=== PATIENT | female | born 1985 | race Caucasian/White ===

== ENCOUNTER 2022-05-14 11:47 | Outpatient (CLI) | payer MEDICAID, SELFPAY ==
[2022-05-14 13:29] LABS: Absolute Lymphocyte Count 3.04 X10^3/uL (0.83-4.51); Absolute Neutrophil Count 4.3 X10^3/uL (2.0-7.7); Basophil# 0.03 X10^3/uL; Basophil% 0.4 % (0-1); Eosinophil# 0.19 X10^3/uL; Eosinophils% 2.4 % (0-5); Hematocrit 44.9 % (37-47); Hemoglobin 15.1 g/dL (12.0-15.0); Lymphocyte # 3.04 X10^3/ul (0.83-4.51); Lymphocyte % 37.9 % (19-41); Mean Corp Hgb Conc 33.6 g/dL (32-36); Mean Corpuscular Hgb 31.1 pg (27.0-32.0); Mean Corpuscular Volume 92.6 fL (81-99); Mean Platelet Vol. 9.2 fl (6.2-12.0); Monocyte% 6.2 % (0-10); NRBC Flagged by Analyzer 0 % (0-5); Neutrophil # 4.25 X10^3/uL (2.7-7.7); Platelet Count 314 K/mm3 (150-450); RBC Distribution Width CV 13.2 % (11.6-14.6); RBC Distribution Width SD 44.8 fl (35.1-43.9); Red Blood Count 4.85 M/mm3 (4.2-5.4)
[2022-05-14 14:16] LABS: ALB/GLOB Ratio 1.1 RATIO (0.9-2.4); AST(SGOT) 11 U/L (15-37); Alanine Aminotransfer ALT/SGPT 19 U/L (13-56); Albumin, Serum 3.9 g/dL (3.2-5.0); Alkaline Phosphatase 50 U/L (45-117); Anion Gap 9 (5-15); BUN 15 mg/dL (7-18); BUN/Creat Ratio 22.1 RATIO (10-20); Calcium,Total 8.8 mg/dL (8.5-10.1); Chloride 107 mmol/L (98-107); Cholesterol 192 mg/dL (200); Creatinine, Serum 0.68 mg/dL (0.55-1.02); EST Glomerular Filtration Rate 104 mL/min (>60); Est Glom Filt Rate - Afr Amer 126 mL/min (>60); Globulin 3.4 g/dL (2.2-4.2); Glucose 77 mg/dL (74-106); High Density Lipoprotein 71 mg/dL; Protein, Total 7.3 g/dL (6.4-8.2); Sodium Level 138 mmol/L (136-145); Triglycerides 123 mg/dL; Very Low Density Lipoprotein 25 mg/dL (5-40)
== END 2022-05-14 23:59 | disposition home or self-care (01) ==
LOC: LAB 11:50
PROVIDERS: PCP Internal Medicine; Visit Provider Internal Medicine
DX: Z13.6 Encounter for screening for cardiovascular disorders (principal); F41.9 Anxiety disorder, unspecified; F32.A Depression, unspecified
CPT/HCPCS: 36415; 80053; 80061; 85025

== ENCOUNTER → 2022-07-02 | Outpatient (CLI) | payer MEDICAID, SELFPAY ==
[2022-07-02 13:09] LABS: Vitamin B12 354 pg/mL (211-911); Vitamin D,25 Hydroxy 34.7 ng/mL
[2022-07-02 13:15] LABS: Ferritin 122 ng/mL (8-252); Iron 81 ug/dL (50-170); Iron Binding Capacity,Total 441 ug/dL (250-450); PERCENT IRON SATURATION 18.4 % (15.0-55.0); Thyroid Stim Hormone (TSH) 0.73 uIU/mL (0.358-3.74)
== END | disposition home or self-care (01) ==
LOC: BIMLAB 10:36
PROVIDERS: PCP Internal Medicine; Referring Provider Internal Medicine; Visit Provider Internal Medicine
DX: L65.9 Nonscarring hair loss, unspecified (principal)
CPT/HCPCS: 36415; 82306; 82607; 82728; 83540; 83550; 84443

== ENCOUNTER → 2022-12-10 | Outpatient (CLI) | payer MEDICAID, SELFPAY ==
[2022-12-13 12:08] LABS: Chlamydia By Nucleic Acid AMP Negative (Negative); Gonococcus By Nucleic Acid AMP Negative (Negative)
[2022-12-15 19:07] LABS: HPV APTIMA, High Risk Negative (Negative)
== END | disposition home or self-care (01) ==
LOC: LABSPEC 15:48
PROVIDERS: PCP Internal Medicine; Referring Provider Registered Nurse; Visit Provider Registered Nurse
DX: Z00.00 Encounter for general adult medical examination without abnormal findings (principal); Z11.3 Encounter for screening for infections with a predominantly sexual mode of transmission
CPT/HCPCS: 87491; 87591; 87624; 88175; G0145

== ENCOUNTER → 2022-12-31 | Outpatient (CLI) | payer MEDICAID, SELFPAY ==
[2022-12-31 13:00] LABS: Absolute Lymphocyte Count 1.95 X10^3/uL (0.83-4.51); Absolute Neutrophil Count 3.1 X10^3/uL (2.0-7.7); Basophil# 0.02 X10^3/uL; Basophil% 0.4 % (0-1); Eosinophil# 0.07 X10^3/uL; Eosinophils% 1.3 % (0-5); Hemoglobin 14.3 g/dL (12.0-15.0); Lymphocyte # 1.95 X10^3/ul (0.83-4.51); Lymphocyte % 35.1 % (19-41); Mean Corp Hgb Conc 32.5 g/dL (32-36); Mean Corpuscular Hgb 30.2 pg (27.0-32.0); Mean Platelet Vol. 9.6 fl (6.2-12.0); Monocyte# 0.39 X10^3/uL; NRBC Flagged by Analyzer 0 % (0-5); Neutrophil % 55.7 % (47-70); Platelet Count 356 K/mm3 (150-450); RBC Distribution Width CV 13.4 % (11.6-14.6); RBC Distribution Width SD 46.2 fl (35.1-43.9); Red Blood Count 4.73 M/mm3 (4.2-5.4); White Blood Count 5.6 K/mm3 (4.4-11.0)
[2022-12-31 13:20] LABS: ALB/GLOB Ratio 1.1 RATIO (0.9-2.4); AST(SGOT) 12 U/L (15-37); Alanine Aminotransfer ALT/SGPT 15 U/L (13-56); Albumin, Serum 3.7 g/dL (3.2-5.0); Alkaline Phosphatase 45 U/L (45-117); Anion Gap 6 (5-15); BUN 15 mg/dL (7-18); Calcium,Total 9.3 mg/dL (8.5-10.1); Chloride 110 mmol/L (98-107); Cholesterol 192 mg/dL (200); Creatinine, Serum 0.79 mg/dL (0.55-1.02); EST Glomerular Filtration Rate 87 mL/min (>60); Est Glom Filt Rate - Afr Amer 105 mL/min (>60); Globulin 3.3 g/dL (2.2-4.2); Glucose 85 mg/dL (74-106); High Density Lipoprotein 75 mg/dL; Potassium 4.3 mmol/L (3.5-5.1); Sodium Level 137 mmol/L (136-145); Triglycerides 121 mg/dL; Very Low Density Lipoprotein 24 mg/dL (5-40)
[2022-12-31 13:37] LABS: Vitamin D,25 Hydroxy 42.4 ng/mL
== END | disposition home or self-care (01) ==
PROVIDERS: PCP Internal Medicine; Referring Provider Internal Medicine; Visit Provider Internal Medicine
DX: Z00.00 Encounter for general adult medical examination without abnormal findings (principal); F41.9 Anxiety disorder, unspecified; F32.A Depression, unspecified; E55.9 Vitamin D deficiency, unspecified
CPT/HCPCS: 36415; 80053; 80061; 82306; 85025

== ENCOUNTER → 2024-04-08 | Outpatient (CLI) | payer MEDICAID, SELFPAY ==
[2024-04-08 15:14] LABS: Absolute Neutrophil Count 4.2 X10^3/uL (2.0-7.7); Basophil# 0.03 X10^3/uL; Basophil% 0.4 % (0-1); Eosinophil# 0.11 X10^3/uL; Eosinophils% 1.5 % (0-5); Hematocrit 43.8 % (37-47); Hemoglobin 14.3 g/dL (12.0-15.0); Lymphocyte % 34.5 % (19-41); Mean Corp Hgb Conc 32.6 g/dL (32-36); Mean Corpuscular Hgb 29.3 pg (27.0-32.0); Mean Corpuscular Volume 89.8 fL (81-99); Mean Platelet Vol. 9.2 fl (6.2-12.0); Monocyte# 0.35 X10^3/uL; Monocyte% 4.8 % (0-10); NRBC Flagged by Analyzer 0 % (0-5); Neutrophil # 4.22 X10^3/uL (2.7-7.7); Neutrophil % 58.4 % (47-70); Platelet Count 341 K/mm3 (150-450); RBC Distribution Width CV 13.2 % (11.6-14.6); RBC Distribution Width SD 43.6 fl (35.1-43.9); Red Blood Count 4.88 M/mm3 (4.2-5.4); White Blood Count 7.2 K/mm3 (4.4-11.0)
[2024-04-08 15:43] LABS: Vitamin B12 280 pg/mL (211-911); Vitamin D,25 Hydroxy 32.2 ng/mL
[2024-04-08 15:54] LABS: Free T3 2.5 pg/mL (2.18-3.98); T4 Free Direct 0.96 ng/dL (0.76-1.46)
[2024-04-15 01:07] LABS: Thyroglobulin Antibody < 1.0 IU/mL (0.0-0.9); Thyroid Peroxidase AB < 9 IU/mL (0-34); VITAMIN B6 20.8 ug/L (3.4-65.2); Vitamin B1, Thiamine 109.1 nmol/L (66.5-200.0)
== END | disposition home or self-care (01) ==
PROVIDERS: Registered Nurse; PCP Internal Medicine; Referring Provider Nurse Practitioner Family; Visit Provider Nurse Practitioner Family
DX: R53.83 Other fatigue (principal); F32.A Depression, unspecified; F41.9 Anxiety disorder, unspecified; F90.9 Attention-deficit hyperactivity disorder, unspecified type
CPT/HCPCS: 36415; 82306; 82607; 82746; 84207; 84425; 84439; 84443; 84481; 85025; 86376; 86800

== ENCOUNTER → 2024-04-12 | Outpatient (CLI) | payer MEDICAID, SELFPAY ==
[2024-04-12 15:55] LABS: ALB/GLOB Ratio 1.1 RATIO (0.9-2.4); AST(SGOT) 11 U/L (15-37); Alanine Aminotransfer ALT/SGPT 17 U/L (13-56); Albumin, Serum 3.8 g/dL (3.2-5.0); Alkaline Phosphatase 44 U/L (45-117); Anion Gap 7 (5-15); BUN 16 mg/dL (7-18); Calcium,Total 9.4 mg/dL (8.5-10.1); Chloride 107 mmol/L (98-107); Cholesterol 213 mg/dL (200); EST Glomerular Filtration Rate 85 mL/min (>60); Est Glom Filt Rate - Afr Amer 103 mL/min (>60); Globulin 3.4 g/dL (2.2-4.2); Glucose 78 mg/dL (74-106); High Density Lipoprotein 87 mg/dL; Potassium 4.1 mmol/L (3.5-5.1); Protein, Total 7.2 g/dL (6.4-8.2); Sodium Level 137 mmol/L (136-145); Triglycerides 93 mg/dL; Very Low Density Lipoprotein 19 mg/dL (5-40)
== END | disposition home or self-care (01) ==
LOC: BIMLAB 11:35
PROVIDERS: PCP Internal Medicine; Visit Provider Internal Medicine
DX: J45.990 Exercise induced bronchospasm (principal); F41.9 Anxiety disorder, unspecified; F32.A Depression, unspecified; F90.9 Attention-deficit hyperactivity disorder, unspecified type
CPT/HCPCS: 36415; 80053; 80061

== ENCOUNTER → 2025-04-19 | Outpatient (CLI) | payer MEDICAID, SELFPAY ==
--- OUTSIDE RECORDS SUMMARY | 2025-04-19 09:52 | XMS RPT_ITS | CCD ---
Author Organization [facility] Care Team Providers Care Saute Chef Name Role Phone Sofia Rod CNP Unavailable [facility] Unavailable Gay Penn Unavailable Lester Nice LPN Unavailable Unavailable Unavailable Unavailable Dr. Alphonso Alvarez Referring Provider [phone] Dr. Carmela Turpin Primary Care Provider Dr. Carmela Turpin Attending Provider Dr. Carmela Turpin Referring Provider Dr. Carmela Turpin Primary Care Provider Dr. Carmela Turpin Referring Provider OLAYINKA Willingham Attending Provider Dr. Carmela Turpin Attending Provider SELF, SELF Referring Unavailable Patricia, Enedina Attending Unavailable [place], Carmela Primary Care Unavailable Alma Ramirez Attending Unavailable Papi, Carmela Referring Unavailable [place], Carmela Primary Care Unavailable [place], Carmela Primary Care Unavailable Patricia, Enedina Attending Unavailable Carmela Turpin Attending Unavailable [place], Carmela Referring Unavailable Papi, Carmela Primary Care Unavailable Patricia, Enedina Attending Unavailable [place], Carmela Primary Care Unavailable Patricia, Enedina Attending Unavailable Papi, Carmela Primary Care Unavailable Patricia, Enedina Attending Unavailable Papi, Carmela Primary Care Unavailable Papi, Carmela Primary Care Unavailable Patricia, Enedina Attending Unavailable Patricia, Enedina Attending Unavailable Carmela Turpin Primary Care Unavailable Allergies Allergy Classification Reported Allergen(s) Allergy Type Date of Onset Reaction(s) Facility (2 sources) Benadryl *ANTIHISTAMINES*; Translations: [Benadryl *ANTIHISTAMINES*] Allergy to drug (finding) [facility] Work Phone: Comment on above: restlessness insomni a Medications Current Medications Medication Drug Class(es) Dates Sig (Normalized) Sig (Original) [id number] 200 actuat albuterol 0.09 mg/actuat metered dose inhaler (5 sources) beta2-Adrenergic Agonist Start: 05-14-2022 take 1 puff(s) by inhalation every six hours Albuterol Sulfate (Ventolin Hfa) 90 mcg/actuation HFA aerosol inhaler Active 2 PUFF INHALATION EVERY 6 HOURS May 14, 2022 1:00am Start: 05-03-2021 take 1 puff(s) by in halation every four hours as needed Ventolin HFA 108 (90 Base) MCG/ACT Inhalation Aerosol Solution 1 (one) Puff q4hrs prn for 0 days Quantity: 1 {Each} Refills: 0 Ordered: 03-May-2021 Sofia Rod Mary Start : 03-May-2021 Active calcium carbonate 1250 mg chewable tablet (3 sources) Start: 05-14-2022 take 1 tablet by mouth once daily Calcium Carbonate (Calcium 500) 500 mg calcium (1,250 mg) tablet,chewable Active 500 MG PO DAILY May 14, 2022 1:00am cholecalciferol 0.05 mg oral capsule (3 sources) Vitamin D Start: 05-14-2022 take 50 ug by mouth once daily Cholecalciferol (Vitamin D3) Active 50 MCG PO DAILY May 14, 2022 1:00am docosahexaenoic acid 144 mg / eicosapentaenoic acid 216 mg / vitamin e 2 unt oral capsule (3 sources) Start: 05-14-2022 take 1 capsule by mouth once daily Vanderbilt-3 Fatty Acids-Fish Oil (Fish Oil) 360-1,200 mg capsule Active 1 CAP PO DAILY May 14, 2022 1:00am Levonorgestrel-Ethiny l Estrad (11 sources) Progestin, Estrogen, Progestin-contain ing Intrauterine Device Start: 12-10-2022 take 1 tablet by mouth once daily Levonorgestrel-Ethin yl Estrad (Aubra Eq) 0.1-20 mg-mcg tablet Active 1 TABLET PO DAILY December 10, 2022 12:01pm Start: 07-02-2022 End: 12-10-2022 take 1 tablet by mouth once daily Levonorgestrel-Ethinyl Estrad (Aubra Eq) 0.1-20 mg-mcg tablet Discontinued 1 TABLET PO DAILY July 02, 2022 11:19am December 10, 2022 12:01pm Start: 07-02-2022 take 1 tablet by brandon th once daily Levonorgestrel-Ethinyl Estrad (Aubra Eq) 0.1-20 mg-mcg tablet Active 1 TABLET PO DAILY July 02, 2022 10:19am Start: 05-14-2022 End: 07-02-2022 take 1 tablet by mouth once daily Levonorgestrel-Ethinyl Estrad (Aubra Eq) 0.1-20 mg-mcg tablet Discontinued 1 TABLET PO DAILY May 14, 2022 12:27pm July 02, 2022 11:21am Start: 05-14-2022 End: 07-02-2022 take 1 tablet by mouth once daily Levonorgestrel-Ethinyl Estrad (Aubra Eq) 0.1-20 mg-mcg tablet Discontinued 1 TABLET PO DAILY May 14, 2022 11:27am July 02, 2022 10:21am Start: 05-14-2022 take 1 tablet by brandon th once daily Levonorgestrel-Ethinyl Estrad (Aubra Eq) 0.1-20 mg-mcg tablet Active 1 TABLET PO DAILY May 14, 2022 11:27am Start: 05-14-2022 End: 05-14-2022 take 1 tablet by mouth once daily Levonorgestrel-Ethinyl Estrad (Aubra Eq) 0.1-20 mg-mcg tablet Discontinued 1 TABLET PO DAILY May 14, 2022 1:00am May 14, 2022 12:29pm Start: 05-14-2022 End: 05-14-2022 take 1 tablet by mouth once daily Levonorgestrel-Ethinyl Estrad (Aubra Eq) 0.1-20 mg-mcg tablet Discontinued 1 TABLET PO DAILY May 14, 2022 12:00am May 14, 2022 11:29am Start: 05-03-2021 take 1 tablet by brandon th once daily Aubra EQ 0.1-20 MG-MCG Oral Tablet 1 (one) Tablet daily for 0 days Quantity: 90 {Tablet} Refills: 3 Ordered: 03-May-2021 Marcel , Sofia Rod , Sofia Start : 03-May-2021 Active Start: 05-03-2021 take 1 tablet by brandon th once daily Aubra EQ 0.1-20 MG-MCG Oral Tablet 1 (one) Tablet daily for 0 days Quantity: 90 {Tablet} Refills: 3 Ordered: 03-May-2021 Marcel MOISE, Jodi Marcel MOISE, Sofia Cardoso Start : 03-May-2021 Active Lactobacillus Combo No.11 (Probiotic) 15 billion cell capsule, sprinkle (3 sources) Start: 05-14-2022 take 1 capsule by mouth once daily Lactobacillus Combo No.11 (Probiotic) 15 billion cell capsule, sprinkle Active 1 CAP PO DAILY May 14, 2022 1:00am do not crush/chew/cut; swallow whole OR may open and sprinkle in cold drink/food Start: 05-14-2022 take 1 capsule by mo uth once daily Lactobacillus Combo No.11 (Probiotic) 15 billion cell capsule, sprinkle Active 1 CAP PO DAILY May 14, 2022 12:00am do not crush/chew/cut; swallow whole OR may open and sprinkle in cold drink/food loratadine 10 mg oral tablet (4 sources) Start: 05-14-2022 take 1 tablet by mouth once daily Loratadine (Claritin) 10 mg tablet Active 10 MG PO DAILY May 14, 2022 1:00am Claritin Active magnesium oxide 500 mg oral capsule (3 sources) Start: 05-14-2022 take 500 mg by mouth once daily Magnesium Oxide Active 500 MG PO DAILY May 14, 2022 1:00am metroNIDAZOLE 0.01 mg/mg topical gel (5 sources) Nitroimidazole Antimicrobial Start: 05-14-2022 Metronidazole Active 1 APPLIC TOPICAL DAILY May 14, 2022 1:00am Start: 05-03-2021 metroNIDAZOLE 1 % External Gel 1 (one) Application daily for 0 days Quantity: 1 {Applicator} Refills: 3 Ordered: 03-May-2021 Sofia Rod Mary Start : 03-May-2021 Active Comments: 1 bottle Comment on above: 1 bottle Nf-Vt-Fvwy-Fa-Ca Carb-Vit K (3 sources) Start: 05-14-2022 take 1 tablet by mouth once daily Gd-Fz-Yggl-Fa-Ca Carb-Vit K Active 1 TABLET PO DAILY May 14, 2022 1:00am Start: 05-14-2022 take 1 tablet by brandon th once daily Kv-Xz-Xdbr-Fa-Ca Carb-Vit K Active 1 TABLET PO DAILY May 14, 2022 12:00am sertraline 100 mg oral tablet (12 sources) Serotonin Reuptake Inhibitor Start: 12-31-2022 take 100 mg by mouth once daily Sertraline Active 100 MG PO DAILY December 31, 2022 10:40am Start: 05-14-2022 End: 12-31-2022 take 75 mg by mouth once daily Sertraline Discontinued 75 MG PO DAILY October 10, 2022 8:29am December 31, 2022 10:51am Start: 05-14-2022 End: 05-14-2022 take 50 mg by mouth once daily Sertraline Discontinued 50 MG PO DAILY May 14, 2022 1:00am May 14, 2022 12:29pm Start: 05-03-2021 take 1 tablet by brandon th once daily Zoloft 50 MG Oral Tablet 1 (one) Tablet daily for 0 days Quantity: 90 {Tablet} Refills: 1 Ordered: 03-May-2021 Sofia Rod Mary Start : 03-May-2021 Active Comments: Generic please Comment on above: Generic please spironolactone 50 mg oral tablet (4 sources) Aldosterone Antagonist Start: 01-01-20 take 100 mg by mouth once daily Spironolactone Active 100 MG PO DAILY December 31, 2022 10:26am Start: 05-14-2022 End: 12-31-2022 take 50 mg by mouth once daily Spironolactone Discontinued 50 MG PO DAILY May 14, 2022 1:00am December 31, 2022 10:26am sulfacetamide sodium 100 mg/ml topical cream (3 sources) Sulfonamide Antibacterial Start: 05-14-2022 Sulfacetamide Sodium Active 1 APPLIC TOPICAL TWICE A DAY May 14, 2022 1:00am traZODone hydrochloride 100 mg oral tablet (5 sources) Serotonin Reuptake Inhibitor Start: 05-14-2022 take 100 mg by mouth at bedtime Trazodone Active 100 MG PO AT BEDTIME May 14, 2022 1:00am Start: 05-03-2021 traZODone HCl 100 MG Oral Tablet 1 (one) Tablet PRN for 0 days Quantity: 30 {Tablet} Refills: 0 Ordered: 03-May-2021 Sofia Rod Mary Start : 03-May-2021 Active ubidecarenone 100 mg oral capsule (3 sources) Start: 05-14-2022 Coenzyme Q10 A ctive 100 MG PO DAILY May 14, 2022 1:00am Vitamin B Complex (B Complex-Vitamin B12) tablet (3 sources) Start: 05-14-2022 take 1 tablet by mouth once daily Vitamin B Complex (B Complex-Vitamin B12) tablet Active 1 TABLET PO DAILY May 14, 2022 1:00am Start: 05-14-2022 take 1 tablet by brandon once daily Vitamin B Complex (B Complex-Vitamin B12) tablet Active 1 TABLET PO DAILY May 14, 2022 12:00am Completed/Discontinued Medications Medication Drug Class(es) Dates Sig (Normalized) Sig (Original) ACV (1 source) ACV Active apple cider vinegar 500 mg oral tablet (3 sources) Start: 05-14-2022 End: 12-10-2022 Apple Cider Vinegar Discontinued MG PO May 14, 2022 1:00am December 10, 2022 11:16am biotin 2.5 mg oral capsule (3 sources) Start: 05-14-2022 End: 12-10-2022 take 2500 ug by mouth once daily Biotin Discontinued 2500 MCG PO DAILY May 14, 2022 1:00am December 10, 2022 11:16am Calcium (1 source) Phosphate Binder, Calcium Calcium Active D3 5000U (1 source) D3 5000U Active Fish Oils (1 source) Fish Oil Active Magnesium (1 source) Magnesium Active MVI (1 source) MVI Active Tumeric (1 source) Tumeric Active vitamin b12 2.5 mg oral lozenge (2 sources) Vitamin B12 Start: 05-17-2021 take 1 tablet under the tongue every week Cyanocobalamin 2500 MCG Sublingual Tablet Sublingual 1 (one) Tablet thre times a week for 0 days Quantity: 60 {Tablet} Refills: 0 Ordered: 17-May-2021 Sofia Rdo Mary Start : 17-May-2021 Active Vitamin B12 complex (1 source) Vitamin B12 comp preeti Active Problems Active Problems Problem Classification Problem Date Documented Date Episodic/Chronic Administrative/social admission (2 sources) Persons encountering health services in other specified circumstances; Translations: [Other reasons for seeking consultation] Episodic Alcohol-related disorders (6 sources) History of alcohol abuse; Translations: [H/O ETOH abuse] 05-17-2021 Chronic Comment on above: not drinking Allergic reactions (3 sources) H/O: non-drug allergy; Translations: [Allergy status to unspecified drugs, medicaments and biological substances status] 05-14-2022 Episodic Anxiety disorders (5 sources) Anxiety disorder, unspecified; Translations: [Anxiety state, unspecified] Onset: 04-13-2025 Chronic Asthma (9 sources) Exercise-induced asthma; Translations: [Exercise-induced asthma] 05-17-2021 Chronic Attention-deficit, conduct, and disruptive behavior disorders (1 source) Attention-deficit hyperactivity disorder, unspecified type; Translations: [Attention-deficit hyperactivity disorder, unspecified type] Onset: 04-13-2025 Chronic Attention-deficit, conduct, and disruptive behavior disorders (1 source) Attention-deficit hyperactivity disorder, predominantly inattentive type; Translations: [Attention-deficit hyperactivity disorder, predominantly inattentive type] Onset: 02-22-2025 Chronic Blindness and vision defects (3 sources) Does use contact lenses; Translations: [Presence of spectacles and contact lenses] 05-14-2022 Episodic Contraceptive and procreative management (18 sources) Patient encounter status; Translations: [Encounter for control] 05-17-2021 Episodic Disorders of lipid metabolism (1 source) Mixed hyperlipidemia; Translations: [Mixed hyperlipidemia] Onset: 04-13-2025 Chronic Genitourinary symptoms and ill-defined conditions (3 sources) History of urinary tract infection; Translations: [Personal history of urinary (tract) infections] 05-14-2022 Episodic Immunizations and screening for infectious disease (2 sources) Encounter for immunization; Translations: [Need for prophylactic vaccination and inoculation against unspecified single disease] Episodic Mood disorders (4 sources) Depressive disorder; Translations: [Depression, controlled] 05-17-2021 Chronic Mood disorders (3 sources) Mood disorders; Translations: [Depression, unspecified] Onset: 04-13-2025 Nutritional deficiencies (6 sources) Vitamin D deficiency; Translations: [Vitamin D deficiency] Onset: 04-13-2025 05-17-2021 Chronic Nutritional deficiencies (7 sources) Cobalamin deficiency; Translations: [Vitamin B12 deficiency] Onset: 04-13-2025 05-17-2021 Episodic Other circulatory disease (3 sources) Raynaud's disease; Translations: [Raynaud's syndrome without gangrene] 05-14-2022 Chronic Other ear and sense organ disorders (2 sources) Other abnormal auditory perceptions, unspecified ear; Translations: [Hyperacusis] Episodic Other inflammatory condition of skin (11 sources) Rosacea; Translations: [Rosacea] 05-17-2021 Chronic Other inflammatory condition of skin (4 sources) Rosacea, unspecified; Translations: [Rosacea] Chronic Other nutritional; endocrine; and metabolic disorders (1 source) Personal history of other endocrine, nutritional and metabolic disease; Translations: [Personal history of other endocrine, nutritional and metabolic disease] Onset: 04-13-2025 Episodic Other screening for suspected conditions (not mental disorders or infectious disease) (7 sources) Screening status; Translations: [Screening for diabetes mellitus] 05-17-2021 Episodic Other skin disorders (1 source) Nonscarring hair loss, unspecified; Translations: [Alopecia, unspecified] Episodic Residual codes; unclassified (4 sources) Body mass index 20-24 - normal; Translations: [BMI 20.0-20.9, adult] 05-17-2021 Episodic Residual codes; unclassified (4 sources) Insomnia; Translations: [Insomnia] 05-17-2021 Episodic Residual codes; unclassified (4 sources) Non-smoker; Translations: [Nonsmoker] 05-17-2021 Episodic Residual codes; unclassified (3 sources) Past history of procedure; Translations: [Other specified postprocedural states] 05-14-2022 Episodic Residual codes; unclassified (3 sources) Difficulty sleeping ; Translations: [Sleep disorder, unspecified] 05-14-2022 Episodic Screening and history of mental health and substance abuse codes (9 sources) History of clinical finding in subject; Translations: [Personal history of other mental and behavioral disorders] 05-14-2022 Episodic Past or Other Problems Problem Classification Problem Date Documented Da te Episodic/Chronic Deficiency and other anemia (1 source) Deficiency and other anemia Diabetes mellitus without complication (1 source) Diabetes mellitus without complication Unclassified (2 sources) Deliveries (Parity); Translations: [Deliveries (Parity)] 05-17-2021 Comment on above: 0 Unclassified (2 sources) Pregnancies (); Translations: [Pregnancies ()] 05-17-2021 Comment on above: 0 Unclassified (4 sources) Unclassified (2 sources) BMI 20.0-20.9, adult Unclassified (2 sources) Nonsmoker Unclassified (1 source) H/O ETOH abuse Unclassified (1 source) Encounter for control Unclassified (1 source) Encounter for screening for lipid disorder Unclassified (1 source) Encounter for general adult medical examination with abnormal findings Unclassified (1 source) Screening for endocrine disorder Unclassified (3 sources) No history of procedure; Translations: [No history of previous surgery] 05-14-2022 Results Test Name Value Interpretation Reference Range Facility Internal Medicine Office Vis banner 04-11-2025 Internal Medicine Office Visit [facility] Internal Medicine [facility] [facility] [place] [address] OFFICE VISIT Date of Service: 04/13/25 MR#: [id number] Acct: [id number] Name: BIANCA CARBONE Rep #: [id number] : 1985 Provider: Dr. Carmela phan MD Age/Sex: 39/F Location: [facility] [place] Status: Signed Intake Vital Signs 04/12/24 11:06 02/22/25 08:31 04/13/25 08:44 Height 5 ft 9 in 5 ft 9 in 5 ft 9 in Weight: 130 lb BMI 19.2 BP 116/78 Blood Pressure Location Lt brachial Position Sitting Respiration 16 Pulse 76 Pulse Source Monitor Temp 97.2 F L Temp Source Temporal Pulse Oximetry (%) 99 Oxygen Delivery Method room air Intake Visit Reasons: yearly Chief Complaint: follow up Water Restoration Technician Required: No Is patient in pain?: No Allergies No Known Allergies Allergy (Verified 04/13/25 08:28) Medications ???Medication ???Instructions ???Recorded ???Confirmed ???Type loratadine 10 mg tablet (Claritin) 10 mg PO DAILY 05/14/22 04/13/25 History magnesium oxide 500 mg capsule 500 mg PO DAILY 05/14/22 04/13/25 History spironolactone 100 mg tablet 100 mg PO DAILY 12/11/23 04/13/25 History sulfacetamide sodium (acne) 10 % topical 04/12/24 04/13/25 History lotion (suspension) hydroxyzine HCl 25 mg tablet 25 mg PO BID PRN anxiety #60 tabs 05/11/24 04/13/25 Rx niacinamide 500 mg tablet 500 mg PO BID 05/11/24 04/13/25 Hi story vitamin R28-meuzpnd B1 1,000 ml IM 05/11/24 04/13/25 History mcg-100 mg/mL injection solution vitamin D3 125 mcg (5,000 cap PO 05/11/24 04/13/25 History unit)-vitamin K2 100 mcg capsule oxymetazoline 1 % topical cream 1 applic topical QDAY 09/28/24 History levonorgestrel-ethinyl estradiol 1 tab PO DAILY #84 tabs 11/18/24 1 Rx 0.1 mg-20 mcg tablet (Aubra EQ) buspirone 7.5 mg tablet 7.5 mg PO BID #180 tabs 02/22/25 1 Rx dextroamphetamine-amphet amine 5 mg 5 mg PO QDAY 30 days #30 tabs 04/13/25 Rx tablet dextroamphetamine-amphet amine ER 15 mg PO QAM 30 days #30 caps 01/2804/13/25 Rx 15 mg 24hr capsule,extend release (Adderall XR) evening primrose oil 1,300 mg mg PO 02/22/25 04/13/25 History capsule sertraline 100 mg tablet 100 mg PO DAILY #90 tabs 02/22/25 04/13/25 Rx trazodone 100 mg tablet 100 mg PO QHS PRN insomnia #90 tab s 02/22/25 04/13/25 Rx albuterol sulfate 90 mcg/actuation 2 puff inhalation Q6H PRN 04/13/25 Rx aerosol inhaler (Ventolin HFA) shortness of breath or wheezing #8.5 grams liothyronine 5 mcg tablet 5 mcg PO BID 04/13/25 04/13/25 His tory Nurse's Note: pt needs albuterol refilled. Pt got flu shot last thursday w/ covid booster. Pt is fasting for labs. [facility] Medical History (Updated 04/13/25 @ 08:[address] Carmela Turpin MD) Enlarged lymph node in neck Hx of major depression History of anxiety Wears contact lenses Hx of emotional problems Hx: UTI (urinary tract infection) Hx of seasonal allergies History of alcohol abuse Surgical History (Updated 04/13/25 @ 08:[address] Carmela Turpin MD) History of removal of skin mole S/P thyroid biopsy Family History Father Anxiety Depression Mother Thyroid disorder Thyroid cancer Primary lateral sclerosis secondary to lyme disease Grandfather Alcohol abuse Maternal Grandmother Alcohol abuse Maternal Grandfather Heart disease Uncle Heart disease genetic defect Aunt Breast cancer x2 Grandmother No problems noted. Social History (Updated 04/13/25 @ 08:[address] 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 1. Little interest or pleasure in doing things: not at all 2. Feeling down, depressed, or hopeless: not at all 3. Trouble falling or staying asleep, or sleeping too much: several days (if trazadone missed) 4. Feeling tired or having little energy: several days 5. Poor appetite or overeating: not at all 6. Feeling bad about yourself - or that you are a failure or have let yourself and your family down: not at all 7. Trouble concentrating on things, such as reading the (more content not included)... Normal [facility] DNA analysis discrete US PREVENTIVE MEDICINE ce variation panel [facility] (Bld/Tiss)on 03-29-2025 Disclaimer See Notes [facility] Comment on above: Result Comment: This test was developed and validated by [facility]. This test has not been cleared or approved by the [place] Food and Drug Administration (FDA). The [facility] laboratory is accredited by the [employer] (CAP) and certified under the Clinical Laboratory Improvement Amendments (CLIA #: [id number]) to perform high-complexity clinical tests. This test is used for clinical purposes. It should not be regarded as investigational use only or for research use only. Performed By: #### 5 5208-3 #### [facility] (DEFAULT) [address] [address] Genes Tested See Notes [facility] Comment on above: Result Comment: APOB , BRCA1, BRCA2, EPCAM, LDLR, LDLRAP1, PCSK9, PMS2, MLH1, MSH2, MSH6 Performed By: #### 5 5208-3 #### [facility] (DEFAULT) [address] [address] GENETIC ANALYSIS REPORT [facility] Comment on above: Result Comment: No p athogenic or likely pathogenic variants were detected in the genes analyzed by this test.Genetic test results should be interpreted in the context of an individual's personal medical and family history. Alteration to medical management is NOT recommended based solely on this result. Clinical correlation is advised.Additional Considerations- This is a screening test; individuals may still carry pathogenic or likely pathogenic variant(s) in the tested genes that are not detected by this test.- For individuals at risk for these or other related conditions based on factors including personal or family history, diagnostic testing is recommended.- The absence of pathogenic or likely pathogenic variant(s) in the analyzed genes, while reassuring, does not eliminate the possibility of a hereditary condition; there are other variants and genes associated with heart disease and hereditary cancer that are not included in this test. Performed By: #### 5 5208-3 #### [facility] (DEFAULT) [address] [place] [address] Genetic Diseases Assessed Normal [facility] Comment on above: Result Comment: This is a screening test and does not detect all pathogenic or likely pathogenic variant(s) in the tested genes; diagnostic testing is recommended for individuals with a personal or family history of heart disease or hereditary cancer. [facility] Tier One Population Screen is a screening test that analyzes 11 genes related to hereditary breast and ovarian cancer (HBOC) syndrome, Mejia syndrome, and familial hypercholesterolemia. This test only reports clinically significant pathogenic and likely pathogenic variants but does not report variants of uncertain significance (VUS). In addition, analysis of the PMS2 gene excludes exons 11-15, which overlap with a known pseudogene (PMS2CL). Performed By: #### 5 5208-3 #### [facility] (DEFAULT) [address] [place] [address] Interpretation Methods and Limitations See Notes Normal [facility] Comment on above: Result Comment: Extr acted DNA is enriched for targeted regions and then sequenced using the [facility] Exome+ (R) assay on an Illumina DNA sequencing system. Data is then aligned to a modified version of GRCh38 and all genes are analyzed using the ABRAM transcript and ABRAM Plus Clinical transcript, when available. Small variant calling is completed using a customized version of [employer]'s [employer] software, augmented by a proprietary small variant caller for difficult variants. Copy number variants (CNVs) are then called using a proprietary bioinformatics pipeline based on depth analysis with a comparison to similarly sequenced samples. Analysis of the PMS2 gene is limited to exons 1-10. The interpretation and reporting of variants in APOB, PCSK9, and LDLR is specific to familial hypercholesterolemia; variants associated with hypobetalipoproteinemia are not included. Interpretation is based upon guidelines published by the [employer] (ACMG), the Association for Molecular Pathology (AMP) or their modification by ClinGen Variant Curation Expert Panels when available and/or review of previous clinical assertions available in the ClinVar database. Interpretation is limited to the transcripts indicated on the report and +/- 10 bp into intronic regions, except as noted below. [place] variant classifications include pathogenic, likely pathogenic, variant of uncertain significance (VUS), likely benign, and benign. Only variants classified as pathogenic and likely pathogenic are included in the report. All reported variants are confirmed through secondary manual inspection of DNA sequence data or orthogonal testing. Risk estimations and management guidelines included in this report are based on analysis of primary literature and recommendations of applicable professional societies, and should be regarded as approximations.Based on validation studies,this assay delivers > 99% sensitivity and specificity for single nucleotide variants and insertions and deletions (indels) up to 20 bp. Larger indels and complex variants are also reported but sensitivity may be reduced. Based on validation studies, this assay delivers > 99% sensitivity to multi-exon CNVs and > 90% sensitivity to single-exon CNVs. This test may not detect variants in challenging regions (such as short tandem repeats, homopolymer runs, and segment duplications), sub-exonic CNVs, chromosomal aneuploidy, or variants in the presence of mosaicism. Phasing will be attempted and reported, when possible. Structural rearrangements such as inversions, translocations, and gene conversions are not tested in this assay unless explicitly indicated. Additionally, deep intronic, promoter, and enhancer regions may not be covered. It is important to note that this is a screening test and cannot detect all disease-causing variants. A negative result does not guarantee the absence of a rare, undetectable variant in the genes analyzed; consider using a diagnostic test if there is significant personal and/or family history of one of the conditions analyzed by this test. Any potential incidental findings outside of these genes and conditions will not be identified, nor reported. The results of a genetic test may be influenced by various factors, including bone marrow transplantation, blood transfusions, or in rare cases, hematolymphoid neoplasms.Gene Specific Notes:APOB: analysis is limited to c.16116P>A and c.21825C>T; BRCA1: sequencing analysis extends to CDS +/-20 bp; BRCA2: sequencing analysis extends to CDS +/-20 bp. EPCAM: analysis is limited to CNVof exons 8-9; LDLR: analysis includes CNV ofthe promoter; MLH1: analysis includes CNV of the promoter; PMS2: analysis is limited to exons 1-10. Hever Mckeon, PhD, FACMGG [email or web address] Performed By: #### 5 5208-3 #### [facility] (DEFAULT) [address] [address] Overall Interpretation Normal [facility] Comment on above: Result Comment: Nega tive No pathogenic (disease-causing) genetic variants related to mejia syndrome, hereditary breast and ovarian cancer (BRCA1 and BRCA2 only), or familial hypercholesteremia were detected in this screening test.? ? Based on your personal and family medical history, additional risk assessment or genetic testing may be appropriate for you.?? ? Please follow up with your healthcare provider if you have additional questions or concerns and continue regular health maintenance and screening.? Performed By: #### 5 5208-3 #### [facility] (DEFAULT) [address] [place] [address] Sequencing Location See Notes Normal [facility] Comment on above: Result Comment: Sequ encing done at [facility] [address] [place] [address], [address], [place] [address] (CLIA# [id number]) Performed By: #### 5 5208-3 #### [facility] (DEFAULT) [address] [place] [address] MR/BMS.BPon 02-22-2025 MR/BMS.BP [facility] [address] [place] [address], [address] [place] [address] OFFICE VISIT Date of Service: 02/22/25 MR#: [id number] Acct: [id number] Name: BIANCA CARBONE Rep #: [id number] : 1985 Provider: NOHEMY velarde Age/Sex: 39/F Location: [facility] [place] Status: Signed Intake Vital Signs 11/25/24 08:32 12/13/24 10:43 02/22/25 08:31 Height 5 ft 9 in 5 ft 9 in 5 ft 9 in Weight: 137 lb 2 oz 135 lb BMI 20.2 19.9 BP 108/76 117/82 H 108/73 Blood Pressure Location Lt brachial Lt brachial Position Sitting Sitting Respiration 14 16 Pulse 61 65 Pulse Source Monitor Monitor BP Intake Visit Reasons: 3 M FU Accompanied by: Self Allergies No Known Allergies Allergy (Verified 02/22/25 08:35) Medications ???Medication ???Instructions ???Recorded ???Confirmed ???Type cholecalciferol (vitamin D3) 50 50 mcg PO DAILY 05/14/22 02/22/25 History mcg (2,000 unit) capsule loratadine 10 mg tablet (Claritin) 10 mg PO DAILY 05/14/22 02/22/25 History magnesium oxide 500 mg capsule 500 mg PO DAILY 05/14/22 02/22/25 History albuterol sulfate 90 mcg/actuation 2 puff inhalation Q6H PRN 02/22/25 Rx aerosol inhaler (Ventolin HFA) shortness of breath or wheezing #8.5 grams spironolactone 100 mg tablet 100 mg PO DAILY 12/11/23 02/22/25 History sulfacetamide sodium (acne) 10 % topical 04/12/24 02/22/25 History lotion (suspension) hydroxyzine HCl 25 mg tablet 25 mg PO BID PRN anxiety #60 tabs 05/11/24 02/22/25 Rx niacinamide 500 mg tablet 500 mg PO BID 05/11/24 02/22/25 Hi story vitamin Z81-funoqos B1 1,000 ml IM 05/11/24 02/22/25 History mcg-100 mg/mL injection solution vitamin D3 125 mcg (5,000 cap PO 05/11/24 02/22/25 History unit)-vitamin K2 100 mcg capsule oxymetazoline 1 % topical cream 1 applic topical QDAY 09/28/24 History levonorgestrel-ethinyl estradiol 1 tab PO DAILY #84 tabs 11/18/24 0 02/22/25 Rx 0.1 mg-20 mcg tablet (Aubra EQ) buspirone 7.5 mg tablet 7.5 mg PO BID #180 tabs 02/22/25 0 02/22/25 Rx dextroamphetamine-amphet amine 5 mg 5 mg PO QDAY 30 days #30 tabs 02/22/25 Rx tablet dextroamphetamine-amphet amine 5 mg 5 mg PO QDAY 30 days #30 tabs 08 /27/25 08/27/25 Rx tablet dextroamphetamine-amphet amine ER 15 mg PO QAM 30 days #30 caps 01/2802/22/25 Rx 15 mg 24hr capsule,extend release (Adderall XR) dextroamphetamine-amphet amine ER 15 mg PO QAM 30 days #30 caps 01/2802/22/25 Rx 15 mg 24hr capsule,extend release (Adderall XR) evening primrose oil 1,300 mg mg PO 02/22/25 02/22/25 History capsule sertraline 100 mg tablet 100 mg PO DAILY #90 tabs 02/22/25 02/22/25 Rx trazodone 100 mg tablet 100 mg PO QHS PRN insomnia #90 tab s 02/22/25 02/22/25 Rx PFSH Medical History Hx of major depression History of anxiety Wears contact lenses Hx of emotional problems Hx: UTI (urinary tract infection) Hx of seasonal allergies History of alcohol abuse Surgical History History of removal of skin mole S/P thyroid biopsy Family History Father Anxiety Depression Mother Cancer thyroid Thyroid disorder Grandfather Alcohol abuse Grandmother Alcohol abuse Grandfather Heart disease Uncle Heart disease genetic defect Aunt Cancer breast cancer. both maternal aunts >40 Social History adopted: No household members: none housing: house current occupational status: employed current occupation: [employer] pets and animals: No sexually active: Yes Smoking Status: Never smoker Electronic Cigarette Use: not used alcohol intake: former year quit: 2019 substance use type: does not use diet: gluten free caffeine: Yes (3) Type: tea what type of physical activity do you participate in: walking, yoga and weight training frequency: 5-6 times per week seatbelt use: always do you feel safe at home: Yes HPI History of Present Illness History provided by: patient HPI: Valerie Carbone is a 39 year old female patient presenting today for a follow up evaluation. Reports she has been doing well since last appointment. Reports she has been working more, went to [place] with her sisters, and her brother got . Does feel medication has been overall effective for her. Denies side effects. Denies feelings of depression. Denies SI/HI. Does feel that more recently the morning dose is not lasting as long as before and the booster is not quite as effective as before. Is unsure if this is related to environment or hormones. Has been a worsening issue over the last 3-4 weeks. Denies recent feelings of anxiety. Appetite has been good. Sleep h (more content not included)... 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 Office Visit Reporton 12-13-2024 Mechanic Assistant Office Visit Report [facility] [address], [address] [place] [address] OFFICE VISIT Date of Service: 12/13/24 MR#: [id number] Acct: [id number] Name: BIANCA CARBONE Rep #: [id number] : 1985 Provider: NOHEMY Thakkar Age/Sex: 39/F Location: [facility] [place] Status: Signed Intake Vital Signs 10/25/24 07:52 11/25/24 08:32 12/13/24 10:43 Height 5 ft 9 in 5 ft 9 in 5 ft 9 in Weight: 137 lb 2 oz BMI 20.2 BP 116/77 108/76 117/82 H Blood Pressure Location Lt brachial Lt brachial Position Sitting Sitting Respiration 16 14 Pulse 58 L 61 Pulse Source Monitor Monitor 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 Technician Required: No Is patient in pain?: No Allergies No Known Allergies Allergy (Verified 12/13/24 10:45) Medications ???Medication ???Instructions ???Recorded ???Confirmed ???Type cholecalciferol (vitamin D3) 50 50 mcg PO DAILY 05/14/22 12/13/24 History mcg (2,000 unit) capsule loratadine 10 mg tablet (Claritin) 10 mg PO DAILY 05/14/22 12/13/24 History magnesium oxide 500 mg capsule 500 mg PO DAILY 05/14/22 12/13/24 History albuterol sulfate 90 mcg/actuation 2 puff inhalation Q6H PRN 12/13/24 Rx aerosol inhaler (Ventolin HFA) shortness of breath or wheezing #8.5 grams spironolactone 100 mg tablet 100 mg PO DAILY 12/11/23 12/13/24 History sulfacetamide sodium (acne) 10 % topical 04/12/24 12/13/24 History lotion (suspension) adenosine triphosphate 25 mg 25 mg PO TID 05/11/24 12/13/24 His tory tablet,delayed release (ATP) hydroxyzine HCl 25 mg tablet 25 mg PO BID PRN anxiety #60 tabs 05/11/24 12/13/24 Rx iron 1.5 mg-folate 8.73 1 cap PO QDAY 05/11/24 12/13/24 Hi story ip-pzm-zwn-EFF-KTHQ-rdh- multivit capsule,IR, (EnLyte) niacinamide 500 mg tablet 500 mg PO BID 05/11/24 12/13/24 Hi story vit A 225 mcg-D3 2.5 mcg-E 16.75 cap PO 05/11/24 12/13/24 History ts-bbzxid-etsc-selenom-h erb capsule (MedCaps T3) vitamin K01-wfqdwul B1 1,000 ml IM 05/11/24 12/13/24 History mcg-100 mg/mL injection solution vitamin D3 125 mcg (5,000 cap PO 05/11/24 12/13/24 History unit)-vitamin K2 100 mcg capsule trazodone 100 mg tablet 100 mg PO QHS PRN insomnia #90 tab s 06/30/24 12/13/24 Rx buspirone 7.5 mg tablet 7.5 mg PO BID #180 tabs 09/08/24 0 12/13/24 Rx oxymetazoline 1 % topical cream 1 applic topical QDAY 09/28/24 History sertraline 100 mg tablet 100 mg PO DAILY #90 tabs 10/03/24 12/13/24 Rx levonorgestrel-ethinyl estradiol 1 tab PO DAILY #84 tabs 11/18/24 0 12/13/24 Rx 0.1 mg-20 mcg tablet (Aubra EQ) dextroamphetamine-amphet amine 5 mg 5 mg PO QDAY 30 days #30 tabs 12/13/24 Rx tablet dextroamphetamine-amphet amine ER 15 mg PO QAM 30 days #30 caps 05/12/13/24 Rx 15 mg 24hr capsule,extend release (Adderall XR) Is last menstrual period known: No Post menopausal: No Patient : No : No Control Method: ocp- aubra [facility] Medical History Hx of major depression History of anxiety Wears contact lenses Hx of emotional problems Hx: UTI (urinary tract infection) Hx of seasonal allergies History of alcohol abuse Surgical History History of removal of skin mole S/P thyroid biopsy Family History Father Anxiety Depression Mother Cancer thyroid Thyroid disorder Grandfather Alcohol abuse Grandmother Alcohol abuse Grandfather Heart disease Uncle Heart disease genetic defect Aunt Cancer breast cancer. both maternal aunts >40 Social History adopted: No household members: none housing: house current occupational status: employed current occupation: [employer] pets and animals: No sexually active: Yes Smoking Status: Never smoker Electronic Cigarette Use: not used alcohol intake: former year quit: 2019 substance use type: does not use diet: gluten free caffeine: Yes (3) Type: tea what type of physical activity do you participate in: walking, yoga and weight training frequency: 5-6 times per week seatbelt use: always do you feel safe at home: Yes History 0 Elective abortions Hx Para Spontaneous abortions Hx # Term Pregnancies Ectopic pregnancies Hx # Pregnancies Multiple births # of living children HPI 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 She reports she has been having night sweats; has been going on for approx 2 months. Takes her OCP continously. Unsure when last menses was. Otherwise doing well with no other issues or concerns. Last PAP: 2022; [place] (more content not included)... Normal [facility] MR/BMSBraulio 11-25-2024 MR/BMS. [facility] [address], [address] [place] [id number] OFFICE VISIT Date of Service: 11/25/24 MR#: [id number] Acct: [id number] Name: BIANCA CARBONE Rep #: [id number] : 1985 Provider: NOHEMY velarde Age/Sex: 39/F Location: [facility] [place] Status: Signed Intake Vital Signs 10/25/24 07:52 11/25/24 08:32 Height 5 ft 9 in 5 ft 9 in BP 116/77 108/76 Blood Pressure Location Lt brachial Lt brachial Position Sitting Sitting Respiration 16 14 Pulse 58 L 61 Pulse Source Monitor Monitor BP Intake Visit Reasons: 1 M FU Water Restoration Technician Required: No Accompanied by: Self Is patient in pain?: No Allergies No Known Allergies Allergy (Verified 11/25/24 08:31) Medications ???Medication ???Instructions ???Recorded ???Confirmed ???Type cholecalciferol (vitamin D3) 50 50 mcg PO DAILY 05/14/22 11/25/24 History mcg (2,000 unit) capsule loratadine 10 mg tablet (Claritin) 10 mg PO DAILY 05/14/22 11/25/24 History magnesium oxide 500 mg capsule 500 mg PO DAILY 05/14/22 11/25/24 History albuterol sulfate 90 mcg/actuation 2 puff inhalation Q6H PRN 11/25/24 Rx aerosol inhaler (Ventolin HFA) shortness of breath or wheezing #8.5 grams spironolactone 100 mg tablet 100 mg PO DAILY 12/11/23 11/25/24 History sulfacetamide sodium (acne) 10 % topical 04/12/24 11/25/24 History lotion (suspension) adenosine triphosphate 25 mg 25 mg PO TID 05/11/24 11/25/24 His tory tablet,delayed release (ATP) hydroxyzine HCl 25 mg tablet 25 mg PO BID PRN anxiety #60 tabs 05/11/24 11/25/24 Rx iron 1.5 mg-folate 8.73 1 cap PO QDAY 05/11/24 11/25/24 Hi story mb-fvb-nqn-ACM-FWQK-ffl- multivit capsule,DR RADHA (EnLyte) niacinamide 500 mg tablet 500 mg PO BID 05/11/24 11/25/24 Hi story vit A 225 mcg-D3 2.5 mcg-E 16.75 cap PO 05/11/24 11/25/24 History nc-hnmzpv-tfjb-selenom-h erb capsule (MedCaps T3) vitamin O02-rtxnplw B1 1,000 ml IM 05/11/24 11/25/24 History mcg-100 mg/mL injection solution vitamin D3 125 mcg (5,000 cap PO 05/11/24 11/25/24 History unit)-vitamin K2 100 mcg capsule trazodone 100 mg tablet 100 mg PO QHS PRN insomnia #90 tab s 06/30/24 11/25/24 Rx buspirone 7.5 mg tablet 7.5 mg PO BID #180 tabs 09/08/24 0 11/25/24 Rx oxymetazoline 1 % topical cream 1 applic topical QDAY 09/28/24 History sertraline 100 mg tablet 100 mg PO DAILY #90 tabs 10/03/24 11/25/24 Rx levonorgestrel-ethinyl estradiol 1 tab PO DAILY #84 tabs 11/18/24 0 11/25/24 Rx 0.1 mg-20 mcg tablet (Aubra EQ) dextroamphetamine-amphet amine 5 mg 1 tab PO QDAY 30 days #30 tabs 0 11/25/24 11/25/24 Rx tablet dextroamphetamine-amphet amine 5 mg 5 mg PO QDAY 30 days #30 tabs 11/25/24 Rx tablet dextroamphetamine-amphet amine 5 mg 5 mg PO QDAY 30 days #30 tabs 11/25/24 Rx tablet dextroamphetamine-amphet amine ER 1 cap PO QDAY 30 days #30 caps 11/25/24 Rx 15 mg 24hr capsule,extend release dextroamphetamine-amphet amine ER 15 mg PO QAM 30 days #30 caps 10/2911/25/24 Rx 15 mg 24hr capsule,extend release (Adderall XR) dextroamphetamine-amphet amine ER 15 mg PO QAM 30 days #30 caps 10/2911/25/24 Rx 15 mg 24hr capsule,extend release (Adderall XR) PFSH Medical History Hx of major depression History of anxiety Wears contact lenses Hx of emotional problems Hx: UTI (urinary tract infection) Hx of seasonal allergies History of alcohol abuse Surgical History History of removal of skin mole S/P thyroid biopsy Family History Father Anxiety Depression Mother Cancer thyroid Thyroid disorder Grandfather Alcohol abuse Grandmother Alcohol abuse Grandfather Heart disease Uncle Heart disease genetic defect Aunt Cancer breast cancer. both maternal aunts >40 Social History adopted: No household members: none housing: house current occupational status: employed current occupation: [employer] pets and animals: No sexually active: Yes Smoking Status: Never smoker Electronic Cigarette Use: not used alcohol intake: former year quit: 2019 substance use type: does not use diet: gluten free caffeine: Yes (3) Type: tea what type of physical activity do you participate in: walking, yoga and weight training frequency: 5-6 times per week seatbelt use: always do you feel safe at home: Yes HPI History of Present Illness History provided by: patient HPI: Valerie Carbone is a 39 year old female patient presenting today for a follow up evaluation. Recently returned from being in [place] with her family and going to see Keyla (more content not included)... Normal [facility] MR/BMS.BPon 10-25-2024 MR/[place] [address] OFFICE VISIT Date of Service: 10/25/24 MR#: [id number] Acct: [id number] Name: BIANCA CARBONE Rep #: [id number] : 1985 Provider: NOHEMY velarde Age/Sex: 39/F Location: [facility] [place] Status: Signed Intake Vital Signs 09/28/24 12:53 10/25/24 07:52 Height 5 ft 9 in 5 ft 9 in BP 119/84 H 116/77 Blood Pressure Location Lt brachial Lt brachial Position Sitting Sitting Respiration 16 16 Pulse 88 58 L Pulse Source Monitor Monitor BP Intake Visit Reasons: 4wfu Accompanied by: Self Allergies No Known Allergies Allergy (Verified 10/25/24 07:57) Medications ???Medication ???Instructions ???Recorded ???Confirmed ???Type cholecalciferol (vitamin D3) 50 50 mcg PO DAILY 05/14/22 10/25/24 History mcg (2,000 unit) capsule loratadine 10 mg tablet (Claritin) 10 mg PO DAILY 05/14/22 10/25/24 History magnesium oxide 500 mg capsule 500 mg PO DAILY 05/14/22 10/25/24 History albuterol sulfate 90 mcg/actuation 2 puff inhalation Q6H PRN 10/25/24 Rx aerosol inhaler (Ventolin HFA) shortness of breath or wheezing #8.5 grams levonorgestrel-ethinyl estradiol 1 tab PO DAILY #84 tabs 12/11/23 0 10/25/24 Rx 0.1 mg-20 mcg tablet (Aubra EQ) spironolactone 100 mg tablet 100 mg PO DAILY 12/11/23 10/25/24 History sulfacetamide sodium (acne) 10 % topical 04/12/24 10/25/24 History lotion (suspension) adenosine triphosphate 25 mg 25 mg PO TID 05/11/24 10/25/24 His tory tablet,delayed release (ATP) hydroxyzine HCl 25 mg tablet 25 mg PO BID PRN anxiety #60 tabs 05/11/24 10/25/24 Rx iron 1.5 mg-folate 8.73 1 cap PO QDAY 05/11/24 10/25/24 Hi story ef-fyv-nsb-IJK-KZFU-wrk- multivit capsule,IRDR (EnLyte) niacinamide 500 mg tablet 500 mg PO BID 05/11/24 10/25/24 Hi story vit A 225 mcg-D3 2.5 mcg-E 16.75 cap PO 05/11/24 10/25/24 History vl-aydihd-plpd-selenom-h erb capsule (MedCaps T3) vitamin O61-gryntrg B1 1,000 ml IM 05/11/24 10/25/24 History mcg-100 mg/mL injection solution vitamin D3 125 mcg (5,000 cap PO 05/11/24 10/25/24 History unit)-vitamin K2 100 mcg capsule trazodone 100 mg tablet 100 mg PO QHS PRN insomnia #90 tab s 06/30/24 10/25/24 Rx buspirone 7.5 mg tablet 7.5 mg PO BID #180 tabs 09/08/24 0 10/25/24 Rx oxymetazoline 1 % topical cream 1 applic topical QDAY 09/28/24 History sertraline 100 mg tablet 100 mg PO DAILY #90 tabs 10/03/24 10/25/24 Rx dextroamphetamine-amphet amine 5 mg 5 mg PO QDAY 30 days #30 tabs 10/25/24 Rx tablet dextroamphetamine-amphet amine ER 15 mg PO QAM 30 days #30 caps 09/2810/25/24 Rx 15 mg 24hr capsule,extend release PFSH Medical History Hx of major depression History of anxiety Wears contact lenses Hx of emotional problems Hx: UTI (urinary tract infection) Hx of seasonal allergies History of alcohol abuse Surgical History History of removal of skin mole S/P thyroid biopsy Family History Father Anxiety Depression Mother Cancer thyroid Thyroid disorder Grandfather Alcohol abuse Grandmother Alcohol abuse Grandfather Heart disease Uncle Heart disease genetic defect Aunt Cancer breast cancer. both maternal aunts >40 Social History (Updated 04/12/24 @ 11:[address] Carmela Turpin MD) adopted: No household members: none housing: house current occupational status: employed current occupation: [employer] pets and animals: No sexually active: Yes Smoking Status: Never smoker Electronic Cigarette Use: not used alcohol intake: former year quit: 2019 substance use type: does not use diet: gluten free caffeine: Yes (3) Type: tea what type of physical activity do you participate in: walking, yoga and weight training frequency: 5-6 times per week seatbelt use: always do you feel safe at home: Yes HPI History of Present Illness History provided by: patient HPI: Valerie Carbone is a 39 year old female patient presenting today for a follow up evaluation. Reports she has seen improvements with increasing dose of medication. Reports noticing improvements with being able to get started on tasks and finding the motivation to do things. Has also been able to get tasks completed. Does feel she has done better with prioritizing things and getting tasks completed before the last minute. Reports she has been more calm and more able to take things as they come. Denies any recent depressed feelings. Denies SI/HI. Denies panic attacks. Does report anxiety has improved but is still present at times. Does report still noticing a drop off at about 2 with the curr (more content not included)... Normal [facility] MR/BMS.BPon 09-28-2024 MR/BMS.BP [facility] [address], [address] [place] [address] OFFICE VISIT Date of Service: 09/28/24 MR#: [id number] Acct: [id number] Name: BIANCA CARBONE Rep #: [id number] : 1985 Provider: NOHEMY velarde Age/Sex: 39/F Location: [facility] [place] Status: Signed Intake Vital Signs 08/17/24 08:59 09/28/24 12:53 Height 5 ft 9 in 5 ft 9 in Weight: 132 lb BMI 19.5 BP 121/83 H 119/84 H Blood Pressure Location Lt brachial Lt brachial Position Sitting Sitting Respiration 16 16 Pulse 85 88 Pulse Source Monitor Monitor BP Intake Visit Reasons: 6wfu Accompanied by: Self Allergies No Known Allergies Allergy (Verified 09/28/24 12:55) Medications ???Medication ???Instructions ???Recorded ???Confirmed ???Type cholecalciferol (vitamin D3) 50 50 mcg PO DAILY 05/14/22 09/28/24 History mcg (2,000 unit) capsule loratadine 10 mg tablet (Claritin) 10 mg PO DAILY 05/14/22 09/28/24 History magnesium oxide 500 mg capsule 500 mg PO DAILY 05/14/22 09/28/24 History albuterol sulfate 90 mcg/actuation 2 puff inhalation Q6H PRN 09/28/24 Rx aerosol inhaler (Ventolin HFA) shortness of breath or wheezing #8.5 grams levonorgestrel-ethinyl estradiol 1 tab PO DAILY #84 tabs 12/11/23 0 09/28/24 Rx 0.1 mg-20 mcg tablet (Aubra EQ) spironolactone 100 mg tablet 100 mg PO DAILY 12/11/23 09/28/24 History sulfacetamide sodium (acne) 10 % topical 04/12/24 09/28/24 History lotion (suspension) adenosine triphosphate 25 mg 25 mg PO TID 05/11/24 09/28/24 His tory tablet,delayed release (ATP) hydroxyzine HCl 25 mg tablet 25 mg PO BID PRN anxiety #60 tabs 05/11/24 09/28/24 Rx iron 1.5 mg-folate 8.73 1 cap PO QDAY 05/11/24 09/28/24 Hi story sj-esy-iyw-IVP-NOAF-reb- multivit capsule,IR, (EnLyte) niacinamide 500 mg tablet 500 mg PO BID 05/11/24 09/28/24 Hi story vit A 225 mcg-D3 2.5 mcg-E 16.75 cap PO 05/11/24 09/28/24 History ie-ftcbjf-ylvi-selenom-h erb capsule (MedCaps T3) vitamin E05-znianrd B1 1,000 ml IM 05/11/24 09/28/24 History mcg-100 mg/mL injection solution vitamin D3 125 mcg (5,000 cap PO 05/11/24 09/28/24 History unit)-vitamin K2 100 mcg capsule trazodone 100 mg tablet 100 mg PO QHS PRN insomnia #90 tab s 06/30/24 09/28/24 Rx sertraline 100 mg tablet 100 mg PO DAILY #90 tabs 08/17/24 09/28/24 Rx buspirone 7.5 mg tablet 7.5 mg PO BID #180 tabs 09/08/24 0 09/28/24 Rx dextroamphetamine-amphet amine ER 15 mg PO QAM 30 days #30 caps 08/2309/28/24 Rx 15 mg 24hr capsule,extend release oxymetazoline 1 % topical cream 1 applic topical QDAY 09/28/2408/23 History PFSH Medical History Hx of major depression History of anxiety Wears contact lenses Hx of emotional problems Hx: UTI (urinary tract infection) Hx of seasonal allergies History of alcohol abuse Surgical History History of removal of skin mole S/P thyroid biopsy Family History Father Anxiety Depression Mother Cancer thyroid Thyroid disorder Grandfather Alcohol abuse Grandmother Alcohol abuse Grandfather Heart disease Uncle Heart disease genetic defect Aunt Cancer breast cancer. both maternal aunts >40 Social History (Updated 04/12/24 @ 11:[address] Carmela Turpin MD) adopted: No household members: none housing: house current occupational status: employed current occupation: [employer] pets and animals: No sexually active: Yes Smoking Status: Never smoker Electronic Cigarette Use: not used alcohol intake: former year quit: 2019 substance use type: does not use diet: gluten free caffeine: Yes (3) Type: tea what type of physical activity do you participate in: walking, yoga and weight training frequency: 5-6 times per week seatbelt use: always do you feel safe at home: Yes HPI History of Present Illness History provided by: patient HPI: Valerie Carbone is a 39 year old female patient presenting today for a follow up evaluation. Reports she has been doing well since her last appointment. Does feel medication has been effective but feels in the afternoon by 2-3 PM it feels like benefit is decreasing. Does take medication 0800 and feels it is beneficial some days but not every day. Does struggle with being spacey and feeling like she is struggling to start something. When medication is effective is noticing improvements in focus, task completion, and feels less overwhelmed. Does feel she has been more patient. Does feel she has been able to prioritize her to do list and do more important things first. Does feel she has not been interrupting others as often as she would before. Did not notice s (more content not included)... Normal [facility] MR/BMS.BPon 08-17-2024 MR/BMS.BP [address], [address] [place] [address] OFFICE VISIT Date of Service: 08/17/24 MR#: [id number] Acct: [id number] Name: BIANCA CARBONE Rep #: [id number] : 1985 Provider: NOHEMY velarde Age/Sex: 39/F Location: [facility] [place] Status: Signed Intake Vital Signs 06/30/24 13:57 08/17/24 08:59 Height 5 ft 9 in 5 ft 9 in Weight: 132 lb BMI 19.5 BP 138/89 H 121/83 H Blood Pressure Location Lt brachial Lt brachial Position Sitting Sitting Respiration 16 16 Pulse 78 85 Pulse Source Monitor Monitor BP Intake Visit Reasons: 6-8fu Allergies No Known Allergies Allergy (Verified 06/30/24 14:00) Medications ???Medication ???Instructions ???Recorded ???Confirmed ???Type cholecalciferol (vitamin D3) 50 50 mcg PO DAILY 05/14/22 08/17/24 History mcg (2,000 unit) capsule loratadine 10 mg tablet (Claritin) 10 mg PO DAILY 05/14/22 08/17/24 History magnesium oxide 500 mg capsule 500 mg PO DAILY 05/14/22 08/17/24 History albuterol sulfate 90 mcg/actuation 2 puff inhalation Q6H PRN 08/17/24 Rx aerosol inhaler (Ventolin HFA) shortness of breath or wheezing #8.5 grams levonorgestrel-ethinyl estradiol 1 tab PO DAILY #84 tabs 12/11/23 0 08/17/24 Rx 0.1 mg-20 mcg tablet (Aubra EQ) spironolactone 100 mg tablet 100 mg PO DAILY 12/11/23 08/17/24 History buspirone 7.5 mg tablet 7.5 mg PO BID #180 tabs 02/17/24 0 08/17/24 Rx sulfacetamide sodium (acne) 10 % topical 04/12/24 08/17/24 History lotion (suspension) adenosine triphosphate 25 mg 25 mg PO TID 05/11/24 08/17/24 His tory tablet,delayed release (ATP) hydroxyzine HCl 25 mg tablet 25 mg PO BID PRN anxiety #60 tabs 05/11/24 08/17/24 Rx iron 1.5 mg-folate 8.73 1 cap PO QDAY 05/11/24 08/17/24 Hi story nc-eml-zpb-RXF-YLXT-jwi- multivit capsule,IR, (EnLyte) niacinamide 500 mg tablet 500 mg PO BID 05/11/24 08/17/24 Hi story vit A 225 mcg-D3 2.5 mcg-E 16.75 cap PO 05/11/24 08/17/24 History da-zfcmuf-efpf-selenom-h erb capsule (MedCaps T3) vitamin T65-nnupyow B1 1,000 ml IM 05/11/24 08/17/24 History mcg-100 mg/mL injection solution vitamin D3 125 mcg (5,000 cap PO 05/11/24 08/17/24 History unit)-vitamin K2 100 mcg capsule trazodone 100 mg tablet 100 mg PO QHS PRN insomnia #90 tab s 06/30/24 08/17/24 Rx atomoxetine 40 mg capsule 40 mg PO QDAY #14 caps 08/17/24 Rx dextroamphetamine-amphet amine ER 10 mg PO QAM 30 days #30 caps 07/3008/17/24 Rx 10 mg 24hr capsule,extend release sertraline 100 mg tablet 100 mg PO DAILY #90 tabs 08/17/24 08/17/24 Rx PFSH Medical History Hx of major depression History of anxiety Wears contact lenses Hx of emotional problems Hx: UTI (urinary tract infection) Hx of seasonal allergies History of alcohol abuse Surgical History History of removal of skin mole S/P thyroid biopsy Family History Father Anxiety Depression Mother Cancer thyroid Thyroid disorder Grandfather Alcohol abuse Grandmother Alcohol abuse Grandfather Heart disease Uncle Heart disease genetic defect Aunt Cancer breast cancer. both maternal aunts >40 Social History (Updated 04/12/24 @ 11:[address] Carmela Turpin MD) adopted: No household members: none housing: house current occupational status: employed current occupation: [employer] pets and animals: No sexually active: Yes Smoking Status: Never smoker Electronic Cigarette Use: not used alcohol intake: former year quit: 2019 substance use type: does not use diet: gluten free caffeine: Yes (3) Type: tea what type of physical activity do you participate in: walking, yoga and weight training frequency: 5-6 times per week seatbelt use: always do you feel safe at home: Yes HPI History of Present Illness History provided by: patient HPI: Valerie Carbone is a 39 year old female patient presenting today for a follow up evaluation. Does feel that atomoxetine has not been beneficial for her any longer. Does feel like she is not taking any medication currently although she is compliant. Denies any recent increase in depression. Does feel the weather affects this for her some. Denies SI/HI. Denies having any heightened anxiety. Denies panic attacks. Sleep has been good and has been on average getting about 7 hours per night. Appetite has been good with no changes. Has lost about 6 pounds since April. Admits to struggling with focus, concentration, and inattention. Admits to difficulties with starting and completing tasks. Does feel before she would look at her to do list and immediately complete it. Does feel business has slo (more content not included)... Normal [facility] MR/BMS.BPon 06-30-2024 MR/BMS.[address], [address] [place] [address] OFFICE VISIT Date of Service: 06/30/24 MR#: [id number] Acct: [id number] Name: BIANCA CARBONE Rep #: [id number] : 1985 Provider: NOHEMY velarde Age/Sex: 39/F Location: [facility] [place] Status: Signed Intake Vital Signs 05/11/24 12:59 06/30/24 13:57 Height 5 ft 9 in 5 ft 9 in Weight: 139 lb BMI 20.5 BP 135/82 H 138/89 H Blood Pressure Location Rt brachial Lt brachial Position Sitting Sitting Respiration 18 16 Pulse 80 78 Pulse Source Monitor Monitor BP Intake Visit Reasons: 6 wk FU Accompanied by: Self Allergies No Known Allergies Allergy (Verified 06/30/24 14:00) Medications ???Medication ???Instructions ???Recorded ???Confirmed ???Type cholecalciferol (vitamin D3) 50 50 mcg PO DAILY 05/14/22 06/30/24 History mcg (2,000 unit) capsule loratadine 10 mg tablet (Claritin) 10 mg PO DAILY 05/14/22 06/30/24 History magnesium oxide 500 mg capsule 500 mg PO DAILY 05/14/22 06/30/24 History albuterol sulfate 90 mcg/actuation 2 puff inhalation Q6H PRN 09/21/23 06/30/24 Rx aerosol inhaler (Ventolin HFA) shortness of breath or wheezing #8.5 grams levonorgestrel-ethinyl estradiol 1 tab PO DAILY #84 tabs 12/11/23 06/30/24 Rx 0.1 mg-20 mcg tablet (Aubra EQ) spironolactone 100 mg tablet 100 mg PO DAILY 12/11/23 06/30/24 History buspirone 7.5 mg tablet 7.5 mg PO BID #180 tabs 02/17/24 06/30/24 Rx sertraline 100 mg tablet 100 mg PO DAILY #90 tabs 04/05/24 06/30/24 Rx sulfacetamide sodium (acne) 10 % topical 04/12/24 06/30/24 History lotion (suspension) adenosine triphosphate 25 mg 25 mg PO TID 05/11/24 06/30/24 History tablet,delayed release (ATP) hydroxyzine HCl 25 mg tablet 25 mg PO BID PRN anxiety #60 tabs 05/11/24 06/30/24 Rx iron 1.5 mg-folate 8.73 1 cap PO QDAY 05/11/24 06/30/24 History hj-dyg-gtm-PRL-IYIT-abu- multivit capsule,DR RADHA (EnLyte) niacinamide 500 mg tablet 500 mg PO BID 05/11/24 06/30/24 History vit A 225 mcg-D3 2.5 mcg-E 16.75 cap PO 05/11/24 06/30/24 History if-hndjqx-stln-selenom-h erb capsule (MedCaps T3) vitamin Y20-uksmxoo B1 1,000 ml IM 05/11/24 06/30/24 History mcg-100 mg/mL injection solution vitamin D3 125 mcg (5,000 cap PO 05/11/24 06/30/24 History unit)-vitamin K2 100 mcg capsule atomoxetine 40 mg capsule 40 mg PO BID #60 caps 06/30/24 06/30/24 Rx trazodone 100 mg tablet 100 mg PO QHS PRN insomnia #90 tabs 06/30/24 06/30/24 Rx PFSH Medical History Hx of major depression History of anxiety Wears contact lenses Hx of emotional problems Hx: UTI (urinary tract infection) Hx of seasonal allergies History of alcohol abuse Surgical History History of removal of skin mole S/P thyroid biopsy Family History Father Anxiety Depression Mother Cancer thyroid Thyroid disorder Grandfather Alcohol abuse Grandmother Alcohol abuse Grandfather Heart disease Uncle Heart disease genetic defect Aunt Cancer breast cancer. both maternal aunts >40 Social History (Updated 04/12/24 @ 11:[address] Carmela Turpin MD) adopted: No household members: none housing: house current occupational status: employed current occupation: [employer] pets and animals: No sexually active: Yes Smoking Status: Never smoker Electronic Cigarette Use: not used alcohol intake: former year quit: 2019 substance use type: does not use diet: gluten free caffeine: Yes (3) Type: tea what type of physical activity do you participate in: walking, yoga and weight training frequency: 5-6 times per week seatbelt use: always do you feel safe at home: Yes HPI History of Present Illness History provided by: patient HPI: Valerie Carbone is a 39 year old female patient presenting today for a follow up evaluation. Does feel that BID dosing of atomoxetine has been more effective than once daily dosing. Over the last week has been struggling more with being able to focus and get tasks completed however is slowing down at work and coming off of a busy holiday season. Mood has been good. Denies any increase in depression and has not had bouts of depression at all recently. Denies SI/HI. Has not noticed any increase in anxiety or irritability. Denies panic attacks. Has not needed hydroxyzine since last appointment. Reports sleep to still be good. Has been taking 100mg of trazodone instead of 50mg due to difficulties with sleep. 7 hours of sleep on average. Had been struggling to stay asleep. Denies any changes in appetite with atomoxetine. Denies any changes in weight with medication. Previous similar episode: Yes Age of first onset of symptoms: 1 (more content not included)... Normal [facility] MR/BMS.BPon 05-11-2024 MR/BMS.BP [facility] [address], [address] [place] [address] OFFICE VISIT Date of Service: 05/11/24 MR#: [id number] Acct: [id number] Name: BIANCA CARBONE Rep #: [id number] : 1985 Provider: NOHEMY velarde Age/Sex: 38/F Location: [facility] [place] Status: Signed Intake Vital Signs 03/30/24 13:33 04/12/24 11:06 05/11/24 12:59 Height 5 ft 9 in 5 ft 9 in 5 ft 9 in Weight: 139 lb BMI 20.5 BP 135/82 H Blood Pressure Location Rt brachial Position Sitting Respiration 18 Pulse 80 Pulse Source Monitor BP Intake Visit Reasons: 6wfu Accompanied by: Self Allergies No Known Allergies Allergy (Verified 05/11/24 13:01) Medications ???Medication ???Instructions ???Recorded ???Confirmed ???Type cholecalciferol (vitamin D3) 50 50 mcg PO DAILY 05/14/22 04/12/24 History mcg (2,000 unit) capsule loratadine 10 mg tablet (Claritin) 10 mg PO DAILY 05/14/22 04/12/24 History magnesium oxide 500 mg capsule 500 mg PO DAILY 05/14/22 04/12/24 History albuterol sulfate 90 mcg/actuation 2 puff inhalation Q6H PRN 09/21/23 04/12/24 Rx aerosol inhaler (Ventolin HFA) shortness of breath or wheezing #8.5 grams levonorgestrel-ethinyl estradiol 1 tab PO DAILY #84 tabs 12/11/23 04/12/24 Rx 0.1 mg-20 mcg tablet (Aubra EQ) spironolactone 100 mg tablet 100 mg PO DAILY 12/11/23 04/12/24 History buspirone 7.5 mg tablet 7.5 mg PO BID #180 tabs 02/17/24 04/12/24 Rx trazodone 100 mg tablet 100 mg PO QHS PRN insomnia #90 tabs 02/17/24 04/12/24 Rx sertraline 100 mg tablet 100 mg PO DAILY #90 tabs 04/05/24 04/12/24 Rx sulfacetamide sodium (acne) 10 % topical 04/12/24 04/12/24 History lotion (suspension) adenosine triphosphate 25 mg 25 mg PO TID 05/11/24 05/11/24 History tablet,delayed release (ATP) atomoxetine 40 mg capsule 40 mg PO BID #60 caps 05/11/24 05/11/24 Rx hydroxyzine HCl 25 mg tablet 25 mg PO BID PRN anxiety #60 tabs 05/11/24 05/11/24 Rx iron 1.5 mg-folate 8.73 1 cap PO QDAY 05/11/24 05/11/24 History pt-uqg-lht-JMW-MBVT-dgp- multivit capsule,IR, (EnLyte) niacinamide 500 mg tablet 500 mg PO BID 05/11/24 05/11/24 History vit A 225 mcg-D3 2.5 mcg-E 16.75 cap PO 05/11/24 05/11/24 History ez-ifahki-monm-selenom-h erb capsule (MedCaps T3) vitamin C22-vrrcefl B1 1,000 ml IM 05/11/24 05/11/24 History mcg-100 mg/mL injection solution vitamin D3 125 mcg (5,000 cap PO 05/11/24 05/11/24 History unit)-vitamin K2 100 mcg capsule PFSH Medical History Hx of major depression History of anxiety Wears contact lenses Hx of emotional problems Hx: UTI (urinary tract infection) Hx of seasonal allergies History of alcohol abuse Surgical History History of removal of skin mole S/P thyroid biopsy Family History Father Anxiety Depression Mother Cancer thyroid Thyroid disorder Grandfather Alcohol abuse Grandmother Alcohol abuse Grandfather Heart disease Uncle Heart disease genetic defect Aunt Cancer breast cancer. both maternal aunts >40 Social History (Updated 04/12/24 @ 11:[address] Carmela Turpin MD) adopted: No household members: none housing: house current occupational status: employed current occupation: [employer] pets and animals: No sexually active: Yes Smoking Status: Never smoker Electronic Cigarette Use: not used alcohol intake: former year quit: 2019 substance use type: does not use diet: gluten free caffeine: Yes (3) Type: tea what type of physical activity do you participate in: walking, yoga and weight training frequency: 5-6 times per week seatbelt use: always do you feel safe at home: Yes HPI History of Present Illness History provided by: patient HPI: Valerie Carbone is a 38 year old female patient presenting today for a follow up evaluation. 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 Does feel she has seen improvements in symptoms with increasing atomoxetine but does not feel it has been effective enough. Admits to taking her medication in the morning and it has been beneficial with focusing which has reduced her stress in many ways. Does feel she has been more stressed with the recent results of the election. Reports she is not getting overwhelmed to the point of not being able to do anything. Does feel more stressed and like it is decreasing energy. Is sleeping well with the use of trazodone. 6 hours per night. Admits to feelings well rested an having good energy throughout the day. Appetite has been fine. Denies any changes in weight. Has not been feeling depressed recently and feels it is well managed with her current medication regimen. Denies SI/HI. [place] (more content not included)... Normal [facility] Absolute lymphocyte countOrd ered By: Carmela Turpin on 12-31-2022 Lymphocytes Auto (Unsp spec) [#/Vol] 1.95 10*3/uL 0.83-4.51 [facility] Basophil percentageOrdered B y: Carmela Turpin on 12-31-2022 Basophils/100 WBC (Bld) 0.4 % 0-1 [facility] Bilirubin [Mass/Vol] 0.60 mg/dL 0.20-1.00 [facility] Comment on above: For patients on eltr ombopag therapy, use of Dimension [place] TBIL is not recommended. Chloride [Moles/Vol] 110 mmol/L 98-107 [facility] Cholesterol [Mass/Vol] 192 mg/dL <[address] [facility] Comment on above: <200 mg/dL Desirable 200-240 mg/dL Borderline >240 mg/dL High Risk Eosinophils/100 WBC (Bld) 1.3 % 0-5 [facility] Glucose [Mass/Vol] 85 mg/dL 74-106 [facility] Neutrophils (Bld) [#/Vol] 3.1 10*3/uL 2.0-7.7 [facility] Neutrophils/100 WBC (Bld) 55.7 % 47-70 [facility] Potassium [Moles/Vol] 4.3 mmol/L 3.5-5.1 [facility] Protein [Mass/Vol] 7.0 g/dL 6.4-8.2 [facility] Sodium [Moles/Vol] 137 mmol/L 136-145 [facility] Triglyceride [Mass/Vol] 121 mg/dL <199 [facility] Comment on above: The drugs N-Acetylcy steine and Metamizole may falsely depress this assay.Serum Triglycerides Reference Interval Normal <150 mg/dL Borderline high 150 - 199 mg/dL High 200 - 499 mg/dL Very High > or = 500 mg/dL WBC (Bld) [#/Vol] 5.6 10*3/uL 4.4-11.0 [facility] Blood erythrocytes count (nu mber/volume)Ordered By: Carmela Turpin on 12-31-2022 RBC (Bld) [#/Vol] 4.73 10*6/uL 4.2-5.4 [facility] Blood hemoglobin measurement (mass/volume)Ordered By: Carmela Turpin on 12-31-2022 Hemoglobin (Bld) [Mass/Vol] 14.3 g/dL 12.0-15.0 [facility] Blood lymphocytes/100 leukoc ytesOrdered By: Carmela Turpin on 12-31-2022 Lymphocytes/100 WBC (Bld) 35.1 % 19-41 [facility] Blood monocytes/100 leukocyt esOrdered By: Carmela Turpin on 12-31-2022 Monocytes/100 WBC (Bld) 7.0 % 0-10 [facility] Blood platelet mean volumeOr dered By: Carmela Turpin on 12-31-2022 Platelet mean volume (Bld) [Entitic vol] 9.6 fL 6.2-12.0 [facility] Determination of erythrocyte mean corpuscular volume (MCV)Ordered By: Carmela Turpin on 12-31-2022 MCV (RBC) [Entitic vol] 93.0 fL 81-99 [facility] Hematocrit Auto (Bld) [Volum e fraction]Ordered By: Carmela Turpin on 12-31-2022 Hematocrit (Bld) [Volume fraction] 44.0 % 37-47 [facility] Laboratory - Chemistry and C hemistry - challengeOrdered By: Carmlea Turpin on 12-31-2022 ALP [Catalytic activity/Vol] 45 U/L 45-117 [facility] ALT [Catalytic activity/Vol] 15 U/L 13-56 [facility] CO2 [Moles/Vol] 21.0 mmol/L 21.0-32.0 [facility] Globulin (S) [Mass/Vol] 3.3 g/dL 2.2-4.2 [facility] Urea nitrogen/Creatinine [Mass ratio] 19.0 mg/mg 10-20 [facility] Laboratory - Hematology and Cell countsOrdered By: Carmelamasha Turpin on 12-31-2022 Erythrocyte distribution width (RBC) [Entitic vol] 46.2 fL 35.1-43.9 [facility] Erythrocyte distribution width (RBC) [Ratio] 13.4 % 11.6-14.6 [facility] Immature granulocytes/100 WBC (Bld) 0.500 % 0.0-0.9 [facility] Comment on above: IG% - Immature Granu locytes (promyelocytes, myelocytes and metamyelocytes) > 1% indicates that a LEFT SHIFT is Present. MCH (RBC) [Entitic mass] 30.2 pg 27.0-32.0 [facility] Nucleated RBC/100 WBC (Bld) [Ratio] 0 % 0-5 [facility] MCHC Auto (RBC) [Mass/Vol]Or dered By: Carmela Turpin on 12-31-2022 MCHC (RBC) [Mass/Vol] 32.5 g/dL 32-36 [facility] No Panel InformationOrdered By: Carmela Turpin on 12-31-2022 Miscellaneous Test See comment [facility] Comment on above: TEST RESULTS LIMITSN icotine Metabolite(s),Serum Negative Cutoff=25 TESTING PERFORMED AT [facility]. ORIGINAL REPORT ON FILE IN LAB CONTAINS ADDITIONAL TEST SITE INFORMATION. Estimated GFR (MDRD) Amer 105 mL/min >60 [facility] Comment on above: GFR Calc Estimated GFR (MDRD) Non-Af Amer 87 mL/min >60 [facility] Comment on above: Non- GFR Calc Vitamin D 25-Hydroxy 42.4 ng/mL [facility] Comment on above: Vitamin D 25(OH) Sta tus Range Deficiency <20 ng/mL (50nmol/L) Insufficiency 20 - 30 ng/mL (50 - 75 nmol/L) Sufficiency 30 - 100 ng/mL (75 - 250 nmol/L) Toxicity >100 ng/mL (>250 nmol/L) Platelets bldOrdered By: Jamarcus Turpin on 12-31-2022 Platelets (Bld) [#/Vol] 356 10*3/uL 150-450 [facility] Serum or plasma albumin edna urement (mass/volume)Ordered By: Carmela Turpin on 12-31-2022 Albumin [Mass/Vol] 3.7 g/dL 3.2-5.0 [facility] Serum or plasma albumin/glob ulin mass ratioOrdered By: Carmela Turpin on 12-31-2022 Albumin/Globulin [Mass ratio] 1.1 {ratio} 0.9-2.4 [facility] Serum or plasma calcium edna urement (mass/volume)Ordered By: Carmela Turpin on 12-31-2022 Calcium [Mass/Vol] 9.3 mg/dL 8.5-10.1 [facility] Serum or plasma cholesterol in HDL measurement (mass/volume)Ordered By: Carmela Turpin on 12-31-2022 Cholesterol in HDL [Mass/Vol] 75 mg/dL >40 [facility] Comment on above: The drugs N-Acetylcy steine and Metamizole may falsely depress this assay. Reference Range HDL <40 mg/dL Low HDL Cholesterol HDL >or= 60 mg/dL High HDL Cholesterol Serum or plasma cholesterol in VLDL measurement (mass/volume)Ordered By: Carmela Turpin on 12-31-2022 Cholesterol in VLDL [Mass/Vol] 24 mg/dL 5-40 [facility] Serum or plasma creatinine m easurement (mass/volume)Ordered By: Carmela Turpin on 12-31-2022 Creatinine [Mass/Vol] 0.79 mg/dL 0.55-1.02 [facility] Comment on above: The validity of the calculated GFR & GFRAA in patients over 70 years has not been determined. Clinical correlation is essential. Serum or plasma low density lipoprotein (LDL) cholesterol measurement (mass/volume)Ordered By: Carmela Turpin on 12-31-2022 Cholesterol in LDL [Mass/Vol] 93 mg/dL 0-130 [facility] Serum or plasma urea nitroge n measurement (mass/volume)Ordered By: Carmela Turpin on 12-31-2022 Urea nitrogen [Mass/Vol] 15 mg/dL 7-18 [facility] Thin prep Papanicolaou smear with manual screeningOrdered By: Carmela Turpin on 12-31-2022 Thin prep Papanicolaou smear with manual screening 12 U/L 15-37 [facility] Thin prep Papanicolaou smear with manual screening 6 5-15 [facility] Cervical or vagninal specime n microscopic examination by cytology stain (reported asOrdered By: Brandi Willingham on 12-10-2022 Cytology report Cyto stain Doc (Cvx/Vag) Comment . [facility] Comment on above: The Pap smear is a s creening test designed to aid in thedetection of premalignant and malignant conditions of theuterine cervix. It is not a diagnostic procedure andshould not be used as the sole means of detecting cervicalcancer. Both false-positive and false-negative reports dooccur. Chlamydia trachomatis rRNA d etection by probe and target amplification methodOrdered By: Brandi Willingham on 12-10-2022 C. trachomatis rRNA HERMANN+probe Ql (Unsp spec) Negative Negative [facility] Detection in cervical specim en of any of human papilloma virus (HPV) 16, 18, 31, 33,Ordered By: Brandi Willignham on 12-10-2022 HPV 16+18+31+33+35+39+45+5 1+52+56+58+59+66+68 DNA Probe+sig amp Ql (Cvx) Negative Negative [facility] Comment on above: This nucleic acid am plification test detects fourteen high- risk HPV types (16,18,31,33,35,39,45,51,52,56,58,59,66,68)without differentiation. Laboratory - CytologyOrdered By: Brandi Willingham on 12-10-2022 Feather Renovator Cyto stain Nom (Cvx/Vag) [ID] Comment . [facility] Comment on above: Janette Rhodes chnologist (ASCP) Laboratory - Microbiology an d Antimicrobial susceptibilityOrdered By: Brandi Willingham on 12-10-2022 N. gonorrhoeae DNA HERMANN+probe Ql (Unsp spec) Negative Negative [facility] Comment on above: Performed at: =G - L [address] [id number] Director: Brigida Castanon MD, Phone: [phone] Laboratory - Miscellaneous t estsOrdered By: Brandi Willingham on 12-10-2022 Service comment (Unsp spec) [Interp] Comment . [facility] Comment on above: This liquid based Th inPrep(R) pap test was screened withthe use of an image guided system. Service comment (Unsp spec) [Interp] . . [facility] Liquid-based cerv Pap + CT/G C by HERMANN w reflex to high-risk HPV for ASCUSOrdered By: Brandi Willingham on 12-10-2022 Cytology report Cyto stain.thin prep Doc (Cvx/Vag) Comment . [facility] Comment on above: Criteria not met, HP V Genotype not performed.Performed at: - [facility] [id number] Director: Brigida Castanon MD, Phone: [phone] at: = - [facility] [address] [place] [id number] Director: Brigida Castanon MD, Phone: [phone] No Panel InformationOrdered By: Brandi Willingham on 12-10-2022 Pathology report final diagnosis Narrative Comment . [facility] Comment on above: NEGATIVE FOR INTRAEP ITHELIAL LESION OR MALIGNANCY. Iron measurement (mass/mass) on 07-02-2022 Iron (Unsp spec) [Mass/Mass] 81 ug/dL 50-170 [facility] Work Phone: Laboratory - Chemistry and C hemistry - challengeon 07-02-2022 Cobalamin (Vitamin B12) [Mass/Vol] 354 pg/mL 211-911 [facility] Work Phone: No Panel Informationon 07-02 Thyroid Stimulating Hormone (TSH) 0.73 uIU/mL 0.358-3.74 [facility] Work Phone: Total Iron Binding Capacity 441 ug/dL 250-450 [facility] Work Phone: Vitamin D 25-Hydroxy 34.7 ng/mL [facility] Work Phone: Comment on above: Vitamin D 25(OH) Sta tus Range Deficiency <20 ng/mL (50nmol/L) Insufficiency 20 - 30 ng/mL (50 - 75 nmol/L) Sufficiency 30 - 100 ng/mL (75 - 250 nmol/L) Toxicity >100 ng/mL (>250 nmol/L) Serum or plasma ferritin alex surement (mass/volume)on 07-02-2022 Ferritin [Mass/Vol] 122 ng/mL 8-252 [facility] Work Phone: Serum or plasma iron saturat ion measurement (mass fraction)on 07-02-2022 Iron saturation [Mass fraction] 18.4 % 15.0-55.0 [facility] Work Phone: Absolute lymphocyte counton 05-14-2022 Lymphocytes Auto (Unsp spec) [#/Vol] 3.04 10*3/uL 0.83-4.51 [facility] Work Phone: Basophil percentageon 2021 Basophils/100 WBC (Bld) 0.4 % 0-1 [facility] Work Phone: Bilirubin [Mass/Vol] 0.90 mg/dL 0.20-1.00 [facility] Work Phone: Comment on above: For patients on eltr ombopag therapy, use of Dimension [place] TBIL is not recommended. Chloride [Moles/Vol] 107 mmol/L 98-107 [facility] Work Phone: Cholesterol [Mass/Vol] 192 mg/dL <[address] [facility] Work Phone: Comment on above: <200 mg/dL Desirable 200-240 mg/dL Borderline >240 mg/dL High Risk Eosinophils/100 WBC (Bld) 2.4 % 0-5 [facility] Work Phone: Glucose [Mass/Vol] 77 mg/dL 74-106 [facility] Work Phone: Neutrophils (Bld) [#/Vol] 4.3 10*3/uL 2.0-7.7 [facility] Work Phone: Neutrophils/100 WBC (Bld) 53.0 % 47-70 [facility] Work Phone: Potassium [Moles/Vol] 4.0 mmol/L 3.5-5.1 [facility] Work Phone: Protein [Mass/Vol] 7.3 g/dL 6.4-8.2 [facility] Work Phone: Sodium [Moles/Vol] 138 mmol/L 136-145 [facility] Work Phone: Triglyceride [Mass/Vol] 123 mg/dL <199 [facility] Work Phone: Comment on above: The drugs N-Acetylcy steine and Metamizole may falsely depress this assay.Serum Triglycerides Reference Interval Normal <150 mg/dL Borderline high 150 - 199 mg/dL High 200 - 499 mg/dL Very High > or = 500 mg/dL WBC (Bld) [#/Vol] 8.0 10*3/uL 4.4-11.0 [facility] Work Phone: Blood erythrocytes count (nu mber/volume)on 05-14-2022 RBC (Bld) [#/Vol] 4.85 10*6/uL 4.2-5.4 [facility] Work Phone: Blood hemoglobin measurement (mass/volume)on 05-14-2022 Hemoglobin (Bld) [Mass/Vol] 15.1 g/dL 12.0-15.0 [facility] Work Phone: Blood lymphocytes/100 leukoc yteson 05-14-2022 Lymphocytes/100 WBC (Bld) 37.9 % 19-41 [facility] Work Phone: Blood monocytes/100 leukocyt eson 05-14-2022 Monocytes/100 WBC (Bld) 6.2 % 0-10 [facility] Work Phone: Blood platelet mean volumeon 05-14-2022 Platelet mean volume (Bld) [Entitic vol] 9.2 fL 6.2-12.0 [facility] Work Phone: Determination of erythrocyte mean corpuscular volume (MCV)on 05-14-2022 MCV (RBC) [Entitic vol] 92.6 fL 81-99 [facility] Work Phone: Hematocrit Auto (Bld) [Volum e fraction]on 05-14-2022 Hematocrit (Bld) [Volume fraction] 44.9 % 37-47 [facility] Work Phone: Laboratory - Chemistry and C hemistry - challengeon 05-14-2022 ALP [Catalytic activity/Vol] 50 U/L 45-117 [facility] Work Phone: ALT [Catalytic activity/Vol] 19 U/L 13-56 [facility] Work Phone: CO2 [Moles/Vol] 22.0 mmol/L 21.0-32.0 [facility] Work Phone: Globulin (S) [Mass/Vol] 3.4 g/dL 2.2-4.2 [facility] Work Phone: Urea nitrogen/Creatinine [Mass ratio] 22.1 mg/mg 10-20 [facility] Work Phone: Laboratory - Hematology and Cell countson 05-14-2022 Erythrocyte distribution width (RBC) [Entitic vol] 44.8 fL 35.1-43.9 [facility] Work Phone: Erythrocyte distribution width (RBC) [Ratio] 13.2 % 11.6-14.6 [facility] Work Phone: Immature granulocytes/100 WBC (Bld) 0.100 % 0.0-0.9 [facility] Work Phone: Comment on above: IG% - Immature Granu locytes (promyelocytes, myelocytes and metamyelocytes) > 1% indicates that a LEFT SHIFT is Present. MCH (RBC) [Entitic mass] 31.1 pg 27.0-32.0 [facility] Work Phone: Nucleated RBC/100 WBC (Bld) [Ratio] 0 % 0-5 [facility] Work Phone: MCHC Auto (RBC) [Mass/Vol]on 05-14-2022 MCHC (RBC) [Mass/Vol] 33.6 g/dL 32-36 [facility] Work Phone: No Panel Informationon 05-14 Estimated GFR (MDRD) Amer 126 mL/min >60 [facility] Work Phone: Comment on above: GFR Calc Estimated GFR (MDRD) Non-Af Amer 104 mL/min >60 [facility] Work Phone: Comment on above: Non- GFR Calc Platelets bldon 05-14-2022 Platelets (Bld) [#/Vol] 314 10*3/uL 150-450 [facility] Work Phone: Serum or plasma albumin edna urement (mass/volume)on 05-14-2022 Albumin [Mass/Vol] 3.9 g/dL 3.2-5.0 [facility] Work Phone: Serum or plasma albumin/glob ulin mass ratioon 05-14-2022 Albumin/Globulin [Mass ratio] 1.1 {ratio} 0.9-2.4 [facility] Work Phone: Serum or plasma calcium edna urement (mass/volume)on 05-14-2022 Calcium [Mass/Vol] 8.8 mg/dL 8.5-10.1 [facility] Work Phone: Serum or plasma cholesterol in HDL measurement (mass/volume)on 05-14-2022 Cholesterol in HDL [Mass/Vol] 71 mg/dL >40 [facility] Work Phone: Comment on above: The drugs N-Acetylcy steine and Metamizole may falsely depress this assay. Reference Range HDL <40 mg/dL Low HDL Cholesterol HDL >or= 60 mg/dL High HDL Cholesterol Serum or plasma cholesterol in VLDL measurement (mass/volume)on 05-14-2022 Cholesterol in VLDL [Mass/Vol] 25 mg/dL 5-40 [facility] Work Phone: Serum or plasma creatinine m easurement (mass/volume)on 05-14-2022 Creatinine [Mass/Vol] 0.68 mg/dL 0.55-1.02 [facility] Work Phone: Comment on above: The validity of the calculated GFR & GFRAA in patients over 70 years has not been determined. Clinical correlation is essential. Serum or plasma low density lipoprotein (LDL) cholesterol measurement (mass/volume)on 05-14-2022 Cholesterol in LDL [Mass/Vol] 96 mg/dL 0-130 [facility] Work Phone: Serum or plasma urea nitroge n measurement (mass/volume)on 05-14-2022 Urea nitrogen [Mass/Vol] 15 mg/dL 7-18 [facility] Work Phone: Thin prep Papanicolaou smear with manual screeningon 05-14-2022 Thin prep Papanicolaou smear with manual screening 11 U/L 15-37 [facility] Work Phone: Thin prep Papanicolaou smear with manual screening 9 5-15 [facility] Work Phone: CALCIFEDIOL ([id number])Ordered B y: Drier Operator Helper on 05-03-2021 25-hydroxyvitamin D [Mass/Vol] 49.5 ng/mL Normal 30.0-100.0 [facility]; [facility] Work Phone: Comment on above: Vitamin D deficiency has been defined by the [place] ofMedicine and an Endocrine Society practice guideline as alevel of serum 25-OH vitamin D less than 20 ng/mL (1,2).The Endocrine Society went on to further define vitamin Dinsufficiency as a level between 21 and 29 ng/mL (2).1. IOM ([place] of Medicine). 2010. Dietary reference intakes for calcium and D. [place]: The National Academies Press.2. Maru MF, Iman LA, Nayana JOYCE, et al. Evaluation, treatment, and prevention of vitamin D deficiency: an Endocrine Society clinical practice guideline. JCEM. 2010; 96(7):1911-30. PATIENT WAS FASTINGP ERFORMED BY: [employer]6[address] [facility] [id number] BY: [employer] [address] [id number] CBC & PLATELETS (AUTO) (8502 [id number])Ordered By: Drier Operator Helper on 05-03-2021 Erythrocyte distribution width (RBC) [Ratio] 12.2 % Normal 11.7-15.4 [facility]; [facility] Work Phone: Comment on above: PATIENT WAS FASTINGP ERFORMED BY: [facility] Ekknqr7542 [facility] [id number] BY: [employer] [id number] Hematocrit (Bld) [Volume fraction] 43.4 % Normal 34.0-46.6 [facility]; [facility] Work Phone: Comment on above: PATIENT WAS FASTINGP ERFORMED BY: [employer]70 [facility] [id number] BY: [facility] [id number] Hemoglobin (Bld) [Mass/Vol] 14.5 g/dL Normal 11.1-15.9 [facility]; [facility] Work Phone: Comment on above: PATIENT WAS FASTINGP ERFORMED BY: MADI [facility] Bhgygv4963 [facility] [id number] BY: [facility] [id number] MCH (RBC) [Entitic mass] 31.0 pg Normal 26.6-33.0 [facility]; [facility] Work Phone: Comment on above: PATIENT WAS FASTINGP ERFORMED BY: [facility] Vrevuu7114 [facility] [id number] BY: [facility] [id number] MCHC (RBC) [Mass/Vol] 33.4 g/dL Normal 31.5-35.7 [facility] prehensive Internal Medicine; [facility] Work Phone: Comment on above: PATIENT WAS FASTINGP ERFORMED BY: MADI [facility] Odyvsd3695 [facility] [id number] BY: [facility] [id number] MCV (RBC) [Entitic vol] 93 fL Normal 79-97 [facility]; [facility] Work Phone: Comment on above: PATIENT WAS FASTINGP ERFORMED BY: [facility] Skbjnn9654 [facility] [id number] BY: [facility] [id number] Platelets (Bld) [#/Vol] 352 10*3/uL Normal 150-450 [facility]; [facility] Work Phone: Comment on above: PATIENT WAS FASTINGP ERFORMED BY: [facility] Ollywu8230 [facility] [id number] BY: [facility] [id number] RBC (Bld) [#/Vol] 4.68 10*6/uL Normal 3.77-5.28 [facility]; [facility] Work Phone: Comment on above: PATIENT WAS FASTINGP ERFORMED BY: MADI [facility] Baasgj8717 [facility] [id number] BY: [facility] [address] [id number] WBC (Bld) [#/Vol] 4.8 10*3/uL Normal 3.4-10.8 [facility]; [facility] Work Phone: Comment on above: PATIENT WAS FASTINGP ERFORMED BY: MADI [facility] Deazez4270 [facility] [id number] BY: [facility] [id number] GLUCOSE ([id number])Ordered By: S [employer] Consultant on 05-03-2021 Glucose [Mass/Vol] 89 mg/dL Normal 65-99 [facility]; [facility] Work Phone: Comment on above: PATIENT WAS FASTINGP ERFORMED BY: MADI [facility] Evutwi3025 [facility] [id number] BY: [facility] [id number] LIPID PANEL ([id number])Ordered B y: Drier Operator Helper on 05-03-2021 Cholesterol [Mass/Vol] 197 mg/dL Normal 100-199 [facility]; [facility] Work Phone: Comment on above: PATIENT WAS FASTINGP ERFORMED BY: MADI [facility] Zeltxi6166 [facility] [id number] BY: [address] [id number] Cholesterol in HDL [Mass/Vol] 57 mg/dL Normal [facility]; [facility] Work Phone: Comment on above: PATIENT WAS FASTINGP ERFORMED BY: CB [facility] [address]vuc[address] [facility]in [place] [id number] BY: [facility] [address] [id number] Triglyceride [Mass/Vol] 105 mg/dL Normal 0-149 [facility]; [facility] Work Phone: Comment on above: PATIENT WAS FASTINGP ERFORMED BY: CB [facility] Agctns9345 [facility] [id number] BY: [facility] [address] [id number] LIPID PANEL (36345) 19 mg/dL Normal 5-40 Compr ens[facility]; [facility] Work Phone: Comment on above: PATIENT WAS FASTINGP ERFORMED BY: CB [facility] Igwxed7076 [facility] [id number] BY: [facility] [id number] LIPID PANEL (23058) 121 mg/dL Abnormal 0-99 Com[facility] ens[facility]; [facility] Work Phone: Comment on above: PATIENT WAS FASTINGP ERFORMED BY: CB [facility] Xsfevh5767 [facility] [id number] BY: [facility] [id number] LIPID PANEL (95556) 2.1 {ratio} Normal 0.0-3.2 Comp [facility] heal[facility]ive [facility]; [facility] Work Phone: Comment on above: LDL/HDL Ratio Men Wo men 1/2 Avg.Risk 1.0 1.5 Avg.Risk 3.6 3.2 2X Avg.Risk 6.2 5.0 3X Avg.Risk 8.0 6.1 PATIENT WAS FASTINGP ERFORMED BY: CB [facility] Khrvus8283 [facility] [id number] BY: [facility] [id number] NICOTINE (55008)Ordered By: Drier Operator Helper on 05-03-2021 Cotinine [Mass/Vol] <1.0 Normal Compr ens[facility]; [facility] Work Phone: Comment on above: This test was develo ped and its performance characteristicsdetermined by [employer]. It has not been cleared or approvedby the Food and Drug Administration.Cotinine levels greater than 20.0 are consistent with the use oftobacco or tobacco cessation products. PATIENT WAS FASTINGP ERFORMED BY: [employer]70 [facility] [id number] BY: [employer] [id number] Nicotine [Mass/Vol] <1.0 Normal Compr [facility]; [facility] Work Phone: Comment on above: This test was develo ped and its performance characteristicsdetermined by [employer]. It has not been cleared or approvedby the Food and Drug Administration.Nicotine levels greater than 2.0 are consistent with the use oftobacco or tobacco cessation products. PATIENT WAS FASTINGP ERFORMED BY: [employer]70 [facility] [id number] BY: [place] [address] [facility] [id number] TSH (THYROID STIMULATING HOR BRANDO) ([id number])Ordered By: Drier Operator Helper on 05-03-2021 TSH Qn 1.920 {uIU/mL} Normal 0.450-4.50 0 [facility]; [facility] Work Phone: Comment on above: PATIENT WAS FASTINGP ERFORMED BY: [employer]6370 [facility] [id number] BY: [employer] [id number] VITAMIN B12 AND FOLATES (826 07)Ordered By: Drier Operator Helper on 05-03-2021 Cobalamin (Vitamin B12) [Mass/Vol] 473 pg/mL Normal 232-1245 [facility]; [facility] Work Phone: Comment on above: PATIENT WAS FASTINGP ERFORMED BY: [employer]6370 [facility] [id number] BY: [employer] [id number] Folate [Mass/Vol] ng/mL Normal Compreh ensive [facility]; [facility] Work Phone: Comment on above: A serum folate dhruv ntration of less than 3.1 ng/mL isconsidered to represent clinical deficiency. PATIENT WAS FASTINGP ERFORMED BY: [employer]6370 [facility] [id number] BY: [employer] Biosensorston1447 [facility] [id number] Vital Signs Date Time Vital Sign Value Performing Clinician Facility 12-31-2022 10:27-0400 Body height 175.[address] Carmela Turpin Work Phone: [facility] 12-31-2022 10:27-0400 Body mass index (BMI) [Ratio] 20.8 kg/m2 Dr. Carmela Turpin Work Phone: [facility] 12-31-2022 10:27-0400 Body temperature 99.6 [degF] Dr. Carmela Turpin Work Phone: [facility] 12-31-2022 10:27-0400 Body weight 63.[address] Carmela Turpin Work Phone: [facility] 12-31-2022 10:27-0400 Diastolic blood pressure 78 mm[Hg] Dr. Carmela Turpin Work Phone: [facility] 12-31-2022 10:27-0400 Heart rate 52 /min Dr. Carmela Turpin Work Phone: [facility] 12-31-2022 10:27-0400 Respiratory rate 18 /min Dr. Carmela Turpin Work Phone: [facility] 12-31-2022 10:27-0400 SaO2% (BldA) [Mass fraction] 98 % Dr. Carmela Turpin Work Phone: [facility] 12-31-2022 10:27-0400 Systolic blood pressure 114 mm[Hg] Dr. Carmela Turpin Work Phone: [facility] 12-10-2022 11:01-0400 Body mass index (BMI) [Ratio] 21.1 kg/m2 Dr. Carmela Turpin Work Phone: [facility] 12-10-2022 11:01-0400 Body weight 64.[address] Carmela Turpin Work Phone: [facility] 12-10-2022 11:01-0400 Diastolic blood pressure 78 mm[Hg] Dr. Carmela Turpin Work Phone: [facility] 12-10-2022 11:01-0400 Systolic blood pressure 115 mm[Hg] Dr. Carmela Turpin Work Phone: [facility] 07-02-2022 09:51-0500 Body temperature 96.3 [degF] Dr. Alphonso Alvarez Work Phone: [facility] Work Phone: 07-02-2022 09:51-0500 Body weight 62.[address] Alphonso Alvarez Work Phone: [facility] Work Phone: 07-02-2022 09:51-0500 Diastolic blood pressure 62 mm[Hg] Dr. Alphonso Alvarez Work Phone: [facility] Work Phone: 07-02-2022 09:51-0500 Heart rate 73 /min Dr. Alphonso Alvarez Work Phone: [facility] Work Phone: 07-02-2022 09:51-0500 Respiratory rate 16 /min Dr. Alphonso Alvarez Work Phone: [facility] Work Phone: 07-02-2022 09:51-0500 SaO2% (BldA) [Mass fraction] 98 % Dr. Alphonso Alvarez Work Phone: [facility] Work Phone: 07-02-2022 09:51-0500 Systolic blood pressure 86 mm[Hg] Dr. Alphonso Alvarez Work Phone: [facility] Work Phone: 05-14-2022 10:39-0500 Body height 175.[address] Alphonso Alvarez Work Phone: [facility] Work Phone: 05-14-2022 10:39-0500 Body mass index (BMI) [Ratio] 20.9 kg/m2 Dr. Alphonso Alvarez Work Phone: [facility] Work Phone: 05-14-2022 10:39-0500 Body temperature 97.1 [degF] Dr. Alphonso Alvarez Work Phone: [facility] Work Phone: 05-14-2022 10:39-0500 Body weight 64.[address] Alphonso Alvarez Work Phone: [facility] Work Phone: 05-14-2022 10:39-0500 Diastolic blood pressure 74 mm[Hg] Dr. Alphonso Alvarez Work Phone: [facility] Work Phone: 05-14-2022 10:39-0500 Heart rate 55 /min Dr. Alphonso Alvarez Work Phone: [facility] Work Phone: 05-14-2022 10:39-0500 Respiratory rate 16 /min Dr. Alphonso Alvarez Work Phone: [facility] Work Phone: 05-14-2022 10:39-0500 SaO2% (BldA) [Mass fraction] 99 % Dr. Alphonso Alvarez Work Phone: [facility] Work Phone: 05-14-2022 10:39-0500 Systolic blood pressure 102 mm[Hg] Dr. Alphonso Alvarez Work Phone: [facility] Work Phone: 05-17-2021 07:40-0500 Body height 175.9 cm Lester Nice LPN [facility]; [facility] Work Phone: 05-17-2021 07:40-0500 Body mass index (BMI) [Ratio] 20.38 kg/m2 Lester Nice LPN [facility]; [facility] Work Phone: 05-17-2021 07:40-0500 Body surface area Derived from formula 1.77 m2 Lester Nice LPN [facility]; [facility] Work Phone: 05-17-2021 07:40-0500 Body temperature 96.9 [degF] Lester Nice LPN [facility]; [facility] Work Phone: Comment on above: Method: Infrared 05-17-2021 07:40-0500 Body weight 63.05 kg Lester Nice LPN [facility]; [facility] Work Phone: 05-17-2021 07:40-0500 Diastolic blood pressure 68 mm[Hg] Lester Nice LPN [facility]; [facility] Work Phone: Comment on above: Patient Position: Sitting; Cuff Location : Left Arm; Cuff Size: Standard 05-17-2021 07:40-0500 Heart rate 64 /min Lester Nice LPN [facility]; [facility] Work Phone: Comment on above: Pattern: Regular 05-17-2021 07:40-0500 Respiratory rate 16 /min Lester Nice LPN [facility] Work Phone: Comment on above: Pattern: Unlabored 05-17-2021 07:40-0500 SaO2% (BldA) [Mass fraction] 99 % Lester Nice LPN [facility] Work Phone: Comment on above: Room air 05-17-2021 07:40-0500 Systolic blood pressure 102 mm[Hg] Lester Nice LPN [facility] Work Phone: Comment on above: Patient Position: Sitting; Cuff Location : Left Arm; Cuff Size: Standard 05-03-2021 09:33-0400 Body height 175.9 cm Lester Nice LPN [facility] Work Phone: 05-03-2021 09:33-0400 Body mass index (BMI) [Ratio] 20.96 kg/m2 Lester Nice LPN [facility] Work Phone: 05-03-2021 09:33-0400 Body surface area Derived from formula 1.8 m2 Lester Nice LPN [facility] Work Phone: 05-03-2021 09:33-0400 Body temperature 97.8 [degF] Lester Nice LPN [facility] Work Phone: Comment on above: Method: Infrared 05-03-2021 09:33-0400 Body weight 64.86 kg Lester Nice LPN [facility] Work Phone: 05-03-2021 09:33-0400 Diastolic blood pressure 68 mm[Hg] Lester Nice LPN [facility] Work Phone: Comment on above: Patient Position: Sitting; Cuff Location : Left Arm; Cuff Size: Standard 05-03-2021 09:33-0400 Heart rate 77 /min Lester Nice LPN [facility] Work Phone: Comment on above: Pattern: Regular 05-03-2021 09:33-0400 Respiratory rate 16 /min Lester Nice LPN [facility] Work Phone: Comment on above: Pattern: Unlabored 05-03-2021 09:33-0400 SaO2% (BldA) [Mass fraction] 99 % Lester Nice LPN [facility] Work Phone: Comment on above: Room air 05-03-2021 09:33-0400 Systolic blood pressure 102 mm[Hg] Lester Nice LPN [facility] Work Phone: Comment on above: Patient Position: Sitting; Cuff Location : Left Arm; Cuff Size: Standard Encounters Encounter Date Encounter Type Care Provider Facility Start: 04-13-2025 Encounter for genera l adult medical examination without abnormal findings Carmela Turpin [facility] Start: 04-13-2025 End: 04-13-2025 ambulatory Carmela Turpin Facility:[facility] Start: 03-29-2025 ambulatory SELF SELF Facility:[facility] Start: 02-22-2025 End: 02-22-2025 ambulatory Carmela Turpin Facility:[facility] Start: 12-13-2024 End: 12-13-[address] [facility] Facility:[facility] Start: 11-25-2024 End: 11-25-2024 ambulatory Enedina Patricia Facility:[facility] Start: 10-25-2024 End: 10-25-2024 ambulatory Enedina Patricia Facility:[facility] Start: 09-28-2024 End: 09-28-2024 ambulatory Carmela Turpin Facility:[facility] Start: 08-17-2024 End: 08-17-2024 ambulatory Enedina Patricia Facility:[facility] Start: 06-30-2024 End: 06-30-2024 ambulatory Enedina Patricia Facility:[facility] Start: 05-11-2024 End: 05-11-2024 ambulatory Enedina Patricia Facility:[facility] Start: 12-31-2022 End: 12-31-[address] Carmela Turpin Work Phone: [facility] Work Phone: Start: 12-31-2022 End: 12-31-[address] Carmela Turpin Work Phone: [facility] Work Phone: Start: 12-10-2022 End: 12-10-[address] [facility] Work [facility]: Start: 12-10-2022 End: 12-10-[address] Carmela Turpin Work Phone: [facility] Work Phone: Start: 07-02-2022 End: 07-02-[address] Alphonso Alvarez Work Phone: [facility] Work Phone: Start: 07-02-2022 End: 07-02-[address] Alphonso Alvarez Work Phone: [facility] Start: 07-02-2022 End: 07-02-[address] Alphonso Alvarez Work Phone: [facility] Start: 05-14-2022 End: 05-14-[address] Alphonso Alvarez Work Phone: [facility] Work Phone: Start: 05-14-2022 End: 05-14-[address] Alphonso Alvarez Work Phone: [facility] Start: 05-14-2022 End: 05-14-[address] Alphonso Alvarez Work Phone: [facility] Start: 05-17-2021 End: 05-17-2021 Office outpatient visit 15 minutes Sofia Marcel REGISTERED NURSE MATERNAL CHILD Work Phone: [facility] Start: 05-03-2021 End: 05-03-2021 Office outpatient new 45 minutes Sofia Marcel REGISTERED NURSE MATERNAL CHILD Work Phone: [facility] Start: 05-03-2021 End: 05-03-2021 Patient encounter status Sofia Marcel Work Phone: [facility] Patient encounter status Lester Nice LPN [facility] Work Phone: Comment on above: This new pt and form s for life insurance Procedures Date Procedure Procedure Detail Performing Clinician Start: 05-03-2021 End: 05-03-2021 No Known Past Surgical History Lester Nice LPN Ophthalmic examinati on and evaluation Lester Nice LPN Comment on above: 2019- Wayne Nice Pap/pelvis Lester Nice LP N Comment on above: 06/2019- Shyann Mcdonnell Plan of Treatment Date Care Activity Detail Author Start: 05-14-2022 Patient referral [facility] Work Phone: Start: 05-17-2021 Procedure Education Eprescribed prescriptions (G8553) [facility] Work Phone: Start: 05-17-2021 Provider Instructions for Treatment Follow up in 1 year or as needed [facility] Work Phone: Start: 05-03-2021 Procedure Education Eprescribed prescriptions (G8553) [facility] Work Phone: Start: 05-03-2021 Provider Instructions for Treatment Follow up in 2 weeks [facility] Work Phone: Start: 05-03-2021 Hemoglobin glycosylated a1c HgA1C , Office ([id number]) [facility] Work Phone: Patient referral [facility] Work Phone: Immunizations Immunization Date Immunization Notes Care Provider [facility] 04-01-2022 Covid Pfizer Bivalen t Booster Dr. Alphonso Alvarez Work Phone: [facility] 02-11-2022 influenza, seasonal, injectable Dr. Alphonso Alvarez Work Phone: [facility] 05-24-2021 Covid (Pfizer) Dr. Alphonso miller Work Phone: [facility] 03-22-2021 influenza, seasonal, injectable Sofia Marcel REGISTERED NURSE MATERNAL CHILD Work Phone: [facility] Work Phone: 04-09-2017 tetanus toxoid, reduced diphtheria toxoid, and acellular pertussis vaccine, adsorbed Sofia Rod REGISTERED NURSE MATERNAL CHILD Work Phone: [facility] Work Phone: 04-29-[address] Harris Alvarez Work Phone: [facility] 08-03-2012 tetanus toxoid, reduced diphtheria toxoid, and acellular pertussis vaccine, adsorbed Dr. Alphonso Alvarez Work Phone: [facility] Payers Date Payer Category Payer Self-pay 2024 Unknown [id number] 1985 Unknown [id number] Unknown [facility] Unknown [employer] [id number] Unknown [id number] Unknown [id number] Unknown [id number] Unknown [id number] Unknown [id number] Unknown [id number] Unknown [id number] Unknown [id number] Unknown [id number] Social History Date Type Detail Facility Caffeine Use Caffeine Use [facility] Work Phone: Comment on above: 2c/day Start: 05-14-2022 End: 12-29-2022 Tobacco smoking status NHIS Unknown if ever smoked [facility] Start: 1985 Sex Assigned At Female W [facility] Clinical Note 12-10-2022 Note Date & Type Note Facility 12-10-2022 Note [facility] Pap Smear Specimen Adequacy December 10, 2022 4:07pm Comment . Satisfactory for evaluation. No endocervical component is identified. Comment on above: Satisfactory for melony luation. No endocervical component is identified. Evaluation note Note Date & Type Note Facility Evaluation note Diagnosis Onset Date Rosacea acute Oral contraceptive pill surveillance noneactive Immunization due noneactive Screening for cardiovascular condition noneactive Establishing care with new d octor, encounter for noneactive Screening for cervical cancer noneactive Anxiety and depression nonea ctive [facility] Work Phone: Evaluation note Note Date & Type Note Facility Evaluation note Diagnosis Onset Date Rosacea acute Oral contraceptive pill surveillance noneactive Immunization due noneactive Screening for cardiovascular condition noneactive Establishing care with new d octor, encounter for noneactive Screening for cervical cancer noneactive Anxiety and depression nonea ctive Exercise-induced asthma acut e Rosacea acute Oral contraceptive pill surveillance noneactive Misophonia noneactive Anxiety and depression nonea ctive Hair loss noneactive [facility] Work Phone: Evaluation note Note Date & Type Note Facility Evaluation note Diagnosis Onset Date Encounter for routine gyneco logical examination noneactive Exercise-induced asthma acut e Rosacea acute Oral contraceptive pill surveillance noneactive Annual physical exam noneact augusto Misophonia noneactive Anxiety and depression nonea ctive Vitamin D deficiency noneact augusto [facility] Work Phone: Instructions Note Date & Type Note Facility Instructions Name Patient Instructions Indication:Nonsmoker Start: Instruction Type:Provider Instructions for Treatment How to Access Health Information Online using Patient Portal and [employer] Apps Indication:Nonsmoker Start: Instruction Type:Patient Education Patient Instructions Indication:Nonsmoker Start:03-May-2021 Instruction Type:Provider Instructions for Treatment How to Access Health Information Online using Patient Portal and [employer] Apps Indication:Nonsmoker Start:03-May-2021 Instruction Type:Patient Education [facility] Work Phone: Instructions Note Date & Type Note Facility Instructions Name Patient Instructions Indication:Nonsmoker Start: Instruction Type:Provider Instructions for Treatment How to Access Health Information Online using Patient Portal and [employer] Apps Indication:Nonsmoker Start: Instruction Type:Patient Education Patient Instructions Indication:Nonsmoker Start:03-May-2021 Instruction Type:Provider Instructions for Treatment How to Access Health Information Online using Patient Portal and [employer] Apps Indication:Nonsmoker Start:03-May-2021 Instruction Type:Patient Education [facility] Work Phone: Family History No Family History Records FoundUnknown Family Member Name Dates Details Alcohol Abuse Comments:G Status:Active Diabetes Mellitus Comments:First Degree Relati ves. Status:Active Emotional/Anxiety/Depression /Suicide Comments:First Degree Relati ves. Status:Active Ovarian/Pelvic Disease Comments:Mother. Status:Active Thyroid Comments:Mother. Status:Active Thyroid Cancer Comments:Mother. Status:Active Ulcer Comments:First Degree Relati ves. Status:Active Unknown Family Member Name Dates Details Alcohol Abuse Comments:G Status:Active Diabetes Mellitus Comments:First Degree Relati ves. Status:Active Emotional/Anxiety/Depression /Suicide Comments:First Degree Relati ves. Status:Active Ovarian/Pelvic Disease Comments:Mother. Status:Active Thyroid Comments:Mother. Status:Active Thyroid Cancer Comments:Mother. Status:Active Ulcer Comments:First Degree Relati ves. Status:Active Relationship Condition Age at Onset Recorded Date/T el father Anxiety Unknown Depression Unknown mother Malignant neoplasm Unknown Disorder of thyroid Unknown grandfather Alcohol abuse Unknown grandmother Alcohol abuse Unknown grandfather Cardiac disease Unknown uncle Cardiac disease Unknown Relationship Condition Age at Onset Recorded Date/T el father Anxiety Unknown Depression Unknown mother Malignant neoplasm Unknown Disorder of thyroid Unknown grandfather Alcohol abuse Unknown grandmother Alcohol abuse Unknown grandfather Cardiac disease Unknown uncle Cardiac disease Unknown aunt Malignant neoplasm Unknown Chief Complaint and Reason for Visit Chief Complaint DRY MAN, EST. 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 NPP E ORDER Reason for Visit Rosacea Oral contraceptive pill surveillance Immunization due Screening for cardiovascular condition Establishing care with new doctor, encounter for Screening for cervical cancer Anxiety and depression Chief Complaint DRY MAN, EST. 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 Reason for Visit Encounter for routin e gynecological examination Exercise-induced asthma Rosacea Oral contraceptive pill surveillance Annual physical exam Misophonia Anxiety and depression Vitamin D deficiency Summary Purpose Advance Directives No Advanced Directives Records FoundNo Advanced Directives Records Found Additional Source Comments Goals (unrecognized section and content) Goals may be documented in a n alternate sectionGoals may be documented in an alternate sectionGoals may be documented in an alternate section Care Teams (unrecognized sec tion and content) Team Status: Active Member Role Status Dates Dr. Alphonso Alvarez MD Family Provider Active Dr. Carmela Turpin MD Primary Care Provider Active Team Status: Inactive Member Role Status Dates Dr. Carmela Turpin MD Primary Care Pro vider, Attending Provider, Referring Provider Active Team Status: Inactive Member Role Status Dates Dr. Carmela Turpin MD Primary Care Provider, Referri ng Provider Active Brandi Willingham CNM Attending Provider Active Team Status: Inactive Member Role Status Dates Dr. Carmela Turpin MD Primary Care Provider Active Brandi Willingham CNM Attending Provider, Referring Pr ovider Active INFORMATION SOURCE (unrecogn ized section and content) DATE CREATED AUTHOR 04/09/2025 [facility] DATE CREATED AUTHOR AUTHOR'S ORGANIZ ATION 04/15/2025 [facility] FOR RECORDS PERTAINING TO PATIENTS WHO ARE OR HAVE BEEN ENROLLED IN A CHEMICAL DEPENDENCY/SUBSTANCEABUSE PROGRAM, SOME INFORMATION MAY BE OMITTED. This clinical summary was aggregated from multiple sources. Caution should be exercised in using it in the provision of clinical care. This summary normalizes information from multiple sources, and as a consequence, information in this document may materially change the coding, format and clinical context of patient data. In addition, data may be omitted in some cases. CLINICAL DECISIONS SHOULD BE BASED ON THE PRIMARY CLINICAL RECORDS. [employer] provides no warranty or guarantee of the accuracy or completeness of information in this document.
--- OUTSIDE RECORDS SUMMARY | 2025-04-19 09:52 | XMS RPT_ITS | CCD ---
Author Organization [facility] Care Team Providers Care Automobile Body Repairer Helper Name Role Phone Sofia Rod CNP Unavailable [facility] Unavailable Gay Penn Unavailable Lester Nice LPN Unavailable Unavailable Unavailable Unavailable Dr. Alphonso Alvarez Referring Provider [phone] Dr. Carmela Turpin Primary Care Provider Dr. Carmela Turpin Attending Provider Dr. Carmela Turpin Referring Provider Dr. Carmela Turpin Primary Care Provider Dr. Carmela Turpin Referring Provider OLAYINKA Willingham Attending Provider Dr. Carmela Turpin Attending Provider SELF, SELF Referring Unavailable Patricia, Enedina Attending Unavailable Ingle[place], Carmela Primary Care Unavailable Alma Ramirez Attending Unavailable Papi, Carmela Referring Unavailable Inglewood, Carmela Primary Care Unavailable [place], Carmela Primary Care Unavailable Patricia, Enedina Attending Unavailable Carmela Turpin Attending Unavailable [place], Carmela Referring Unavailable Papi, Carmela Primary Care Unavailable Patricia, Enedina Attending Unavailable [place]gle[place], Carmela Primary Care Unavailable Patricia, Enedina Attending Unavailable Papi, Carmela Primary Care Unavailable Patricia, Enedina Attending Unavailable Papi, Carmela Primary Care Unavailable Papi, Acrmela Primary Care Unavailable Patricia, Enedina Attending Unavailable [...] Drug Class(es) Dates Sig (Normalized) Sig (Original) [id number] 200 actuat albuterol 0.09 mg/actuat metered dose [...] take 1 capsule by mouth once daily [place]-3 Fatty Acids-Fish Oil (Fish Oil) 360-1,200 mg [...] 1 bottle Comment on above: 1 bottle Vo-Re-Gbxm-Fa-Ca Carb-Vit K (3 sources) Start: 05-14-2022 take 1 tablet by mouth once daily Zf-Qy-Zdyq-Fa-Ca Carb-Vit K Active 1 TABLET PO DAILY May 14, 2022 1:00am Start: 05-14-2022 take 1 tablet by brandon th once daily Qe-Vx-Pogo-Fa-Ca Carb-Vit K Active 1 TABLET PO DAILY [...] 60 {Tablet} Refills: 0 Ordered: 17-May-2021 Sofia Rod Mary Start : 17-May-2021 Active Vitamin B12 [...] Reference Range Facility Internal Medicine Office Vis [facility] 04-11-2025 Internal Medicine Office Visit [facility] Internal Medicine [facility] [place] [address] OFFICE VISIT Date of Service: 04/13/25 MR#: [id number] Acct: [id number] Name: BIANCA CARBONE Rep #: [id number] : 1985 Provider: Dr. Carmela phan MD Age/Sex: 39/F Location: [facility] Status: Signed Intake Vital Signs 04/12/24 11:06 [...] Visit Reasons: yearly Chief Complaint: follow up Roll Hauler Required: No Is patient in pain?: No [...] PO BID 05/11/24 04/13/25 Hi story vitamin I88-zczeoit B1 1,000 ml IM 05/11/24 04/13/25 History [...] covid booster. Pt is fasting for labs. 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 Normal [facility] DNA analysis discrete InteKrin ce variation panel MolSaltStack (Bld/Tiss)on 03-29-2025 Disclaimer See Notes [facility] Comment on above: Result Comment: This test was developed and validated by [facility]. This test has not been cleared or approved by the [place] Food and Drug Administration (FDA). The [facility] laboratory is accredited by the College of [place] Pathologists (CAP) and certified under the Clinical Laboratory Improvement Amendments (CLIA #: [id number]) to perform high-complexity clinical tests. This test is used for clinical purposes. It should not be regarded as investigational use only or for research use only. Performed By: #### 5 5208-3 #### [facility] (DEFAULT) [address] [address] Genes Tested See Notes [facility] Comment on above: Result Comment: APOB , BRCA1, BRCA2, EPCAM, LDLR, LDLRAP1, PCSK9, PMS2, MLH1, MSH2, MSH6 Performed By: #### 5 5208-3 #### [facility] (DEFAULT) [address] [address] GENETIC ANALYSIS REPORT [facility] Comment on above: Result Comment: No p [...] Performed By: #### 5 5208-3 #### [facility] (DEFAULT) [address] [place] [address] Genetic Diseases Assessed Normal [facility] Comment on above: Result Comment: This is a screening test and does not detect all pathogenic or likely pathogenic variant(s) in the tested genes; diagnostic testing is recommended for individuals with a personal or family history of heart disease or hereditary cancer. [facility] Tier One Population Screen is a screening [...] Performed By: #### 5 5208-3 #### [facility] (DEFAULT) [address] [place] [address] Interpretation Methods and Limitations See Notes Normal [facility] Comment on above: Result Comment: Extr acted DNA is enriched for targeted regions and then sequenced using the [facility] Exome+ (R) assay on an Illumina DNA sequencing system. Data is then aligned to a modified version of GRCh38 and all genes are analyzed using the ABRAM transcript and ABRAM Plus Clinical transcript, when available. Small variant calling is completed using a customized version of [employer]'s Catchafireq software, augmented by a proprietary small variant [...] is based upon guidelines published by the [place] College [employer] Genetics and Genomics (ACMG), the Association for Molecular Pathology (AMP) or their modification by ClinGen Variant Curation Expert Panels when available and/or review of previous clinical assertions available in the ClinVar database. Interpretation is limited to the transcripts indicated on the report and +/- 10 bp into intronic regions, except as noted below. Ripley variant classifications include pathogenic, likely pathogenic, variant [...] neoplasms.Gene Specific Notes:APOB: analysis is limited to c.90220G>A and c.07452D>T; BRCA1: sequencing analysis extends to CDS +/-20 bp; BRCA2: sequencing analysis extends to CDS +/-20 bp. EPCAM: analysis is limited to CNVof exons 8-9; LDLR: analysis includes CNV ofthe promoter; MLH1: analysis includes CNV of the promoter; PMS2: analysis is limited to exons 1-10. Hever Mckeon, PhD, FACMGG [email or web address] Performed By: #### 5 5208-3 #### [facility] (DEFAULT) [address] [address] Overall Interpretation Normal [facility] Comment on above: Result Comment: Nega [...] Performed By: #### 5 5208-3 #### [facility] (DEFAULT) [address] [place] [address] Sequencing Location See Notes Normal [facility] Comment on above: Result Comment: Sequ encing done at [facility] [address] [place] [address], [address], [place] [address] (CLIA# [id number]) Performed By: #### 5 5208-3 #### [facility] (DEFAULT) [address] [place] [address] MR/BMS.BPon 02-22-2025 MR/BMS.BP [facility] [address] [place] [address], [address] [place] [address] OFFICE VISIT Date of Service: 02/22/25 MR#: [id number] Acct: [id number] Name: BIANCA CARBONE Rep #: [id number] : 1985 Provider: NOHEMY velarde Age/Sex: 39/F Location: [facility] Status: Signed Intake Vital Signs 11/25/24 08:32 [...] PO BID 05/11/24 02/22/25 Hi story vitamin R44-zegqerx B1 1,000 ml IM 05/11/24 02/22/25 History [...] house current occupational status: employed current occupation: [employer] pets and animals: No sexually active: Yes [...] she has been working more, went to [place] with her sisters, and her brother got [...] (more content not included)... Normal [facility] Entry Level Project Engineer Office Visit Reporton 12-13-2024 Entry Level Project Engineer Office Visit Report [facility] [address], [address] [place] [address] OFFICE VISIT Date of Service: 12/13/24 MR#: [id number] Acct: [id number] Name: BIANCA CARBONE Rep #: [id number] : 1985 Provider: NOHEMY Thakkar Age/Sex: 39/F Location: [facility] Status: Signed Intake [...] Source Monitor Monitor Intake Visit Reasons: Annual (INSIDE TESTER) Roll Hauler Required: No Is patient in pain?: No [...] cap PO QDAY 05/11/24 12/13/24 Hi story pb-cqk-qul-YLO-KWXL-xrd- multivit capsule,IR, (EnLyte) niacinamide 500 mg tablet 500 mg PO BID 05/11/24 12/13/24 Hi story vit A 225 mcg-D3 2.5 mcg-E 16.75 cap PO 05/11/24 12/13/24 History it-lmwfuh-ingi-selenom-h erb capsule (MedCaps T3) vitamin M16-uipohmi B1 1,000 ml IM 05/11/24 12/13/24 History [...] No : No Control Method: ocp- aubra [facility] Medical History Hx of major depression History [...] house current occupational status: employed current occupation: [employer] pets and animals: No sexually active: Yes [...] births # of living children HPI Annual (INSIDE TESTER) Details: BIANCA CARBONE is a 39 year old who presents for annual exam. She reports she has been having night sweats; has been going on for approx 2 months. Takes her OCP continously. Unsure when last menses was. Otherwise doing well with no other issues or concerns. Last PAP: 2022; [place] (more content not included)... Normal [facility] MR/BMSBraulio 11-25-2024 MR/BMS. [facility] [address], [address] [place] [id number] OFFICE VISIT Date of Service: 11/25/24 MR#: [id number] Acct: [id number] Name: BIANCA CARBONE Rep #: [id number] : 1985 Provider: NOHEMY velarde Age/Sex: 39/F Location: [facility] Status: Signed Intake Vital Signs 10/25/24 07:52 11/25/24 08:32 Height 5 ft 9 in 5 ft 9 in BP 116/77 108/76 Blood Pressure Location Lt brachial Lt brachial Position Sitting Sitting Respiration 16 14 Pulse 58 L 61 Pulse Source Monitor Monitor BP Intake Visit Reasons: 1 M FU Roll Hauler Required: No Accompanied by: Self Is patient [...] cap PO QDAY 05/11/24 11/25/24 Hi story ic-ela-jkd-CTP-SPIX-olb- multivit capsule,DR RADHA (EnLyte) niacinamide 500 mg tablet 500 mg PO BID 05/11/24 11/25/24 Hi story vit A 225 mcg-D3 2.5 mcg-E 16.75 cap PO 05/11/24 11/25/24 History ay-bmblko-gokh-selenom-h erb capsule (MedCaps T3) vitamin L91-ducxgie B1 1,000 ml IM 05/11/24 11/25/24 History [...] house current occupational status: employed current occupation: [employer] pets and animals: No sexually active: Yes [...] up evaluation. Recently returned from being in [place] with her family and going to see Keyla (more content not included)... Normal [facility] MR/BMS.BPon 10-25-2024 MR/[place] [address] OFFICE VISIT Date of Service: 10/25/24 MR#: [id number] Acct: [id number] Name: BIANCA CARBONE Rep #: [id number] : 1985 Provider: NOHEMY velarde Age/Sex: 39/F Location: [facility] Status: Signed Intake Vital Signs 09/28/24 12:53 [...] cap PO QDAY 05/11/24 10/25/24 Hi story zk-gnn-inh-KLZ-EIKU-xts- multivit capsule,IRDR (EnLyte) niacinamide 500 mg tablet 500 mg PO BID 05/11/24 10/25/24 Hi story vit A 225 mcg-D3 2.5 mcg-E 16.75 cap PO 05/11/24 10/25/24 History gv-levdfb-dyqe-selenom-h erb capsule (MedCaps T3) vitamin H46-xvkxaat B1 1,000 ml IM 05/11/24 10/25/24 History [...] house current occupational status: employed current occupation: [employer] pets and animals: No sexually active: [...] (more content not included)... Normal [facility] MR/BMS.BPon 09-28-2024 MR/BMS.BP [facility] [address], [address] [place] [address] OFFICE VISIT Date of Service: 09/28/24 MR#: [id number] Acct: [id number] Name: BIANCA CARBONE Rep #: [id number] : 1985 Provider: NOHEMY velarde Age/Sex: 39/F Location: [facility] Status: Signed Intake Vital Signs 08/17/24 08:59 [...] cap PO QDAY 05/11/24 09/28/24 Hi story uu-dxf-rgy-HFF-HOND-lay- multivit capsule,IR, (EnLyte) niacinamide 500 mg tablet 500 mg PO BID 05/11/24 09/28/24 Hi story vit A 225 mcg-D3 2.5 mcg-E 16.75 cap PO 05/11/24 09/28/24 History ed-vgdwia-ufnf-selenom-h erb capsule (MedCaps T3) vitamin C23-wivuuzz B1 1,000 ml IM 05/11/24 09/28/24 History [...] house current occupational status: employed current occupation: [employer] pets and animals: No sexually active: Yes [...] (more content not included)... Normal [facility] MR/BMS.BPon 08-17-2024 MR/BMS.BP [address], [address] [place] [address] OFFICE VISIT Date of Service: 08/17/24 MR#: [id number] Acct: [id number] Name: BIANCA CARBONE Rep #: [id number] : 1985 Provider: NOHEMY velarde Age/Sex: 39/F Location: [facility] Status: Signed Intake Vital Signs 06/30/24 13:57 [...] cap PO QDAY 05/11/24 08/17/24 Hi story ua-ddi-qqx-LBV-HTBZ-sds- multivit capsule,IR, (EnLyte) niacinamide 500 mg tablet 500 mg PO BID 05/11/24 08/17/24 Hi story vit A 225 mcg-D3 2.5 mcg-E 16.75 cap PO 05/11/24 08/17/24 History ag-hqxtkg-akof-selenom-h erb capsule (MedCaps T3) vitamin V51-piatzvi B1 1,000 ml IM 05/11/24 08/17/24 History [...] house current occupational status: employed current occupation: [employer] pets and animals: No sexually active: [...] (more content not included)... Normal [facility] MR/BMS.BPon 06-30-2024 MR/BMS.[address], [address] [place] [address] OFFICE VISIT Date of Service: 06/30/24 MR#: [id number] Acct: [id number] Name: BIANCA CARBONE Rep #: [id number] : 1985 Provider: NOHEMY velarde Age/Sex: 39/F Location: [facility] Status: Signed Intake Vital Signs 05/11/24 12:59 [...] 1 cap PO QDAY 05/11/24 06/30/24 History rl-sit-chl-OEN-ZNBU-fic- multivit capsule,DR RADHA (EnLyte) niacinamide 500 mg tablet 500 mg PO BID 05/11/24 06/30/24 History vit A 225 mcg-D3 2.5 mcg-E 16.75 cap PO 05/11/24 06/30/24 History hd-rgawjk-exfp-selenom-h erb capsule (MedCaps T3) vitamin R08-bekagzy B1 1,000 ml IM 05/11/24 06/30/24 History [...] house current occupational status: employed current occupation: [employer] pets and animals: No sexually active: Yes [...] (more content not included)... Normal [facility] MR/BMS.BPon 05-11-2024 MR/BMS.BP [facility] [address], [address] [place] [address] OFFICE VISIT Date of Service: 05/11/24 MR#: [id number] Acct: [id number] Name: BIANCA CARBONE Rep #: [id number] : 1985 Provider: NOHEMY velarde Age/Sex: 38/F Location: [facility] Status: Signed Intake Vital Signs 03/30/24 13:33 [...] 1 cap PO QDAY 05/11/24 05/11/24 History xs-ifl-pov-IWE-VMWT-yjn- multivit capsule,IR, (EnLyte) niacinamide 500 mg tablet 500 mg PO BID 05/11/24 05/11/24 History vit A 225 mcg-D3 2.5 mcg-E 16.75 cap PO 05/11/24 05/11/24 History yw-exvhce-xiko-selenom-h erb capsule (MedCaps T3) vitamin W40-dntrfdt B1 1,000 ml IM 05/11/24 05/11/24 History [...] house current occupational status: employed current occupation: [employer] pets and animals: No sexually active: Yes [...] (more content not included)... Normal [facility] Absolute lymphocyte countOrd ered By: Carmela Turpin on 12-31-2022 Lymphocytes Auto (Unsp spec) [#/Vol] 1.95 10*3/uL 0.83-4.51 [facility] Basophil percentageOrdered B y: Carmela Turpin on 12-31-2022 Basophils/100 WBC (Bld) 0.4 % 0-1 [facility] Bilirubin [Mass/Vol] 0.60 mg/dL 0.20-1.[address] [facility] Comment on above: For patients on eltr ombopag therapy, use of Dimension [place] TBIL is not recommended. Chloride [Moles/Vol] 110 mmol/L 98-[address] [facility] Cholesterol [Mass/Vol] 192 mg/dL <200 [facility] Comment on above: <200 mg/dL Desirable 200-240 mg/dL Borderline >240 mg/dL High Risk Eosinophils/100 WBC (Bld) 1.3 % 0-5 [facility] Glucose [Mass/Vol] 85 mg/dL 74-[address] [facility] Neutrophils (Bld) [#/Vol] 3.1 10*3/uL 2.0-7.7 [facility] Neutrophils/100 WBC (Bld) 55.7 % 47-70 [facility] Potassium [Moles/Vol] 4.3 mmol/L 3.5-5.1 [facility] Protein [Mass/Vol] 7.0 g/dL 6.4-8.[address] [facility] Sodium [Moles/Vol] 137 mmol/L 136-[address] [facility] Triglyceride [Mass/Vol] 121 mg/dL <199 [facility] Comment on above: The drugs N-Acetylcy steine and Metamizole may falsely depress this assay.Serum Triglycerides Reference Interval Normal <150 mg/dL Borderline high 150 - 199 mg/dL High 200 - 499 mg/dL Very High > or = 500 mg/dL WBC (Bld) [#/Vol] 5.6 10*3/uL 4.4-11.[address] [facility] Blood erythrocytes count (nu mber/volume)Ordered By: Carmela Turpin on 12-31-2022 RBC (Bld) [#/Vol] 4.73 10*6/uL 4.2-5.4 [facility] Blood hemoglobin measurement (mass/volume)Ordered By: Carmela Turpin on 12-31-2022 Hemoglobin (Bld) [Mass/Vol] 14.3 g/dL 12.0-15.0 [facility] Blood lymphocytes/100 leukoc ytesOrdered By: Carmela Turpin on 12-31-2022 Lymphocytes/100 WBC (Bld) 35.1 % 19-41 [facility] Blood monocytes/100 leukocyt esOrdered By: Carmela Turpin on 12-31-2022 Monocytes/100 WBC (Bld) 7.0 % 0-10 [facility] Blood platelet mean volumeOr dered By: Carmela Turpin on 12-31-2022 Platelet mean volume (Bld) [Entitic vol] 9.6 fL 6.2-12.0 [facility] Determination of erythrocyte mean corpuscular volume (MCV)Ordered By: Carmela Turpin on 12-31-2022 MCV (RBC) [Entitic vol] 93.0 fL 81-99 [facility] Hematocrit Auto (Bld) [Volum e fraction]Ordered By: Carmela Turpin on 12-31-2022 Hematocrit (Bld) [Volume fraction] 44.0 % 37-47 [facility] Laboratory - Chemistry and C hemistry - challengeOrdered By: Carmela Turpin on 12-31-2022 ALP [Catalytic activity/Vol] 45 U/L 45-117 [facility] ALT [Catalytic activity/Vol] 15 U/L 13-56 [facility] CO2 [Moles/Vol] 21.0 mmol/L 21.0-32.0 [facility] Globulin (S) [Mass/Vol] 3.3 g/dL 2.2-4.2 [facility] Urea nitrogen/Creatinine [Mass ratio] 19.0 mg/mg 10-20 [facility] Laboratory - Hematology and Cell countsOrdered By: Carmelamasha Turpin on 12-31-2022 Erythrocyte distribution width (RBC) [Entitic vol] 46.2 fL 35.1-43.9 [facility] Erythrocyte distribution width (RBC) [Ratio] 13.4 % 11.6-14.6 [facility] Immature granulocytes/100 WBC (Bld) 0.500 % 0.0-0.9 [facility] Comment on above: IG% - Immature Granu locytes (promyelocytes, myelocytes and metamyelocytes) > 1% indicates that a LEFT SHIFT is Present. MCH (RBC) [Entitic mass] 30.2 pg 27.0-32.0 [facility] Nucleated RBC/100 WBC (Bld) [Ratio] 0 % 0-5 [facility] MCHC Auto (RBC) [Mass/Vol]Or dered By: Carmela Turpin on 12-31-2022 MCHC (RBC) [Mass/Vol] 32.5 g/dL 32-36 [facility] No Panel InformationOrdered By: Carmela Turpin on 12-31-2022 Miscellaneous Test See comment [facility] Comment on above: TEST RESULTS LIMITSN icotine Metabolite(s),Serum Negative Cutoff=25 TESTING PERFORMED AT [facility]. ORIGINAL REPORT ON FILE IN LAB CONTAINS ADDITIONAL TEST SITE INFORMATION. Estimated GFR (MDRD) Amer 105 mL/min >60 [facility] Comment on above: GFR Calc Estimated GFR (MDRD) Non-Af Amer 87 mL/min >60 [facility] Comment on above: Non- GFR Calc Vitamin D 25-Hydroxy 42.4 ng/mL [facility] Comment on above: Vitamin D 25(OH) Sta tus Range Deficiency <20 ng/mL (50nmol/L) Insufficiency 20 - 30 ng/mL (50 - 75 nmol/L) Sufficiency 30 - 100 ng/mL (75 - 250 nmol/L) Toxicity >100 ng/mL (>250 nmol/L) Platelets bldOrdered By: Jamarcus Turpin on 12-31-2022 Platelets (Bld) [#/Vol] 356 10*3/uL 150-450 [facility] Serum or plasma albumin edna urement (mass/volume)Ordered By: Carmela Turpin on 12-31-2022 Albumin [Mass/Vol] 3.7 g/dL 3.2-5.[address] [facility] Serum or plasma albumin/glob ulin mass ratioOrdered By: Carmela Turpin on 12-31-2022 Albumin/Globulin [Mass ratio] 1.1 {ratio} 0.9-2.4 [facility] Serum or plasma calcium edna urement (mass/volume)Ordered By: Carmela Turpin on 12-31-2022 Calcium [Mass/Vol] 9.3 mg/dL 8.5-10.[address] [facility] Serum or plasma cholesterol in HDL measurement (mass/volume)Ordered By: Carmela Turpin on 12-31-2022 Cholesterol in HDL [Mass/Vol] 75 mg/dL >40 [facility] Comment on above: The drugs N-Acetylcy steine and Metamizole may falsely depress this assay. Reference Range HDL <40 mg/dL Low HDL Cholesterol HDL >or= 60 mg/dL High HDL Cholesterol Serum or plasma cholesterol in VLDL measurement (mass/volume)Ordered By: Carmela Turpin on 12-31-2022 Cholesterol in VLDL [Mass/Vol] 24 mg/dL 5-40 [facility] Serum or plasma creatinine m easurement (mass/volume)Ordered By: Carmela Turpin on 12-31-2022 Creatinine [Mass/Vol] 0.79 mg/dL 0.55-1.02 [facility] Comment on above: The validity of the calculated GFR & GFRAA in patients over 70 years has not been determined. Clinical correlation is essential. Serum or plasma low density lipoprotein (LDL) cholesterol measurement (mass/volume)Ordered By: Carmela Turpin on 12-31-2022 Cholesterol in LDL [Mass/Vol] 93 mg/dL 0-130 [facility] Serum or plasma urea nitroge n measurement (mass/volume)Ordered By: Carmela Turpin on 12-31-2022 Urea nitrogen [Mass/Vol] 15 mg/dL 7-18 [facility] Thin prep Papanicolaou smear with manual screeningOrdered By: Carmela Turpin on 12-31-2022 Thin prep Papanicolaou smear with manual screening 12 U/L 15-37 [facility] Thin prep Papanicolaou smear with manual screening 6 5-15 [facility] Cervical or vagninal specime n microscopic examination by cytology stain (reported asOrdered By: Brandi Willingham on 12-10-2022 Cytology report Cyto stain Doc (Cvx/Vag) Comment . [facility] Comment on above: The Pap smear is [...] Ql (Unsp spec) Negative Negative [facility] Detection in cervical specim en of any of human papilloma virus (HPV) 16, 18, 31, 33,Ordered By: Brandi Willingham on 12-10-2022 HPV 16+18+31+33+35+39+45+5 1+52+56+58+59+66+68 DNA Probe+sig amp Ql (Cvx) Negative Negative [facility] Comment on above: This nucleic acid am plification test detects fourteen high- risk HPV types (16,18,31,33,35,39,45,51,52,56,58,59,66,68)without differentiation. Laboratory - CytologyOrdered By: Brandi Willingham on 12-10-2022 Wall Worker Cyto stain Nom (Cvx/Vag) [ID] Comment . [facility] Comment on above: Janette Rhodes chnologist (ASCP) Laboratory - Microbiology an d Antimicrobial susceptibilityOrdered By: Brandi Willingham on 12-10-2022 N. gonorrhoeae DNA HERMANN+probe Ql (Unsp spec) Negative Negative [facility] Comment on above: Performed at: =G - L [address] [id number] Director: Brigida Castanon MD, Phone: [phone] Laboratory - Miscellaneous t estsOrdered By: Brandi Willingham on 12-10-2022 Service comment (Unsp spec) [Interp] Comment . [facility] Comment on above: This liquid based Th inPrep(R) pap test was screened withthe use of an image guided system. Service comment (Unsp spec) [Interp] . . [facility] Liquid-based cerv Pap + CT/G C by HERMANN w reflex to high-risk HPV for ASCUSOrdered By: Brandi Willingham on 12-10-2022 Cytology report Cyto stain.thin prep Doc (Cvx/Vag) Comment . [facility] Comment on above: Criteria not met, HP V Genotype not performed.Performed at: - [facility] [id number] Director: Brigida Castanon MD, Phone: [phone] at: = - [facility] [address] [place] [id number] Director: Brigida Castanon MD, Phone: [phone] No Panel InformationOrdered By: Brandi Willingham on 12-10-2022 Pathology report final diagnosis Narrative Comment . [facility] Comment on above: NEGATIVE FOR INTRAEP ITHELIAL LESION OR MALIGNANCY. Iron measurement (mass/mass) on 07-02-2022 Iron (Unsp spec) [Mass/Mass] 81 ug/dL 50-170 [facility] Work Phone: Laboratory - Chemistry and C hemistry - challengeon 07-02-2022 Cobalamin (Vitamin B12) [Mass/Vol] 354 pg/mL 211-911 [facility] Work Phone: No Panel Informationon 07-02 Thyroid Stimulating Hormone (TSH) 0.73 uIU/mL 0.358-3.74 [facility] Work Phone: Total Iron Binding Capacity 441 ug/dL 250-450 [facility] Work Phone: Vitamin D 25-Hydroxy 34.7 ng/mL [facility] Work Phone: Comment on above: Vitamin D 25(OH) Sta tus Range Deficiency <20 ng/mL (50nmol/L) Insufficiency 20 - 30 ng/mL (50 - 75 nmol/L) Sufficiency 30 - 100 ng/mL (75 - 250 nmol/L) Toxicity >100 ng/mL (>250 nmol/L) Serum or plasma ferritin alex surement (mass/volume)on 07-02-2022 Ferritin [Mass/Vol] 122 ng/mL 8-252 [facility] Work Phone: Serum or plasma iron saturat ion measurement (mass fraction)on 07-02-2022 Iron saturation [Mass fraction] 18.4 % 15.0-55.0 [facility] Work Phone: Absolute lymphocyte counton 05-14-2022 Lymphocytes Auto (Unsp spec) [#/Vol] 3.04 10*3/uL 0.83-4.51 [facility] Work Phone: Basophil percentageon 2021 Basophils/100 WBC (Bld) 0.4 % 0-1 [facility] Work Phone: Bilirubin [Mass/Vol] 0.90 mg/dL 0.20-1.[address] [facility] Work Phone: Comment on above: For patients on eltr ombopag therapy, use of Dimension [place] TBIL is not recommended. Chloride [Moles/Vol] 107 mmol/L 98-[address] [facility] Work Phone: Cholesterol [Mass/Vol] 192 mg/dL <200 [facility] Work Phone: Comment on above: <200 mg/dL Desirable 200-240 mg/dL Borderline >240 mg/dL High Risk Eosinophils/100 WBC (Bld) 2.4 % 0-5 [facility] Work Phone: Glucose [Mass/Vol] 77 mg/dL 74-[address] [facility] Work Phone: Neutrophils (Bld) [#/Vol] 4.3 10*3/uL 2.0-7.7 [facility] Work Phone: Neutrophils/100 WBC (Bld) 53.0 % 47-70 [facility] Work Phone: Potassium [Moles/Vol] 4.0 mmol/L 3.5-5.1 [facility] Work Phone: Protein [Mass/Vol] 7.3 g/dL 6.4-8.[address] [facility] Work Phone: Sodium [Moles/Vol] 138 mmol/L 136-[address] [facility] Work Phone: Triglyceride [Mass/Vol] 123 mg/dL <199 [facility] Work Phone: Comment on above: The drugs N-Acetylcy steine and Metamizole may falsely depress this assay.Serum Triglycerides Reference Interval Normal <150 mg/dL Borderline high 150 - 199 mg/dL High 200 - 499 mg/dL Very High > or = 500 mg/dL WBC (Bld) [#/Vol] 8.0 10*3/uL 4.4-11.[address] [facility] Work Phone: Blood erythrocytes count (nu mber/volume)on 05-14-2022 RBC (Bld) [#/Vol] 4.85 10*6/uL 4.2-5.4 [facility] Work Phone: Blood hemoglobin measurement (mass/volume)on 05-14-2022 Hemoglobin (Bld) [Mass/Vol] 15.1 g/dL 12.0-15.0 [facility] Work Phone: Blood lymphocytes/100 leukoc yteson 05-14-2022 Lymphocytes/100 WBC (Bld) 37.9 % 19-41 [facility] Work Phone: Blood monocytes/100 leukocyt eson 05-14-2022 Monocytes/100 WBC (Bld) 6.2 % 0-10 [facility] Work Phone: Blood platelet mean volumeon 05-14-2022 Platelet mean volume (Bld) [Entitic vol] 9.2 fL 6.2-12.0 [facility] Work Phone: Determination of erythrocyte mean corpuscular volume (MCV)on 05-14-2022 MCV (RBC) [Entitic vol] 92.6 fL 81-99 [facility] Work Phone: Hematocrit Auto (Bld) [Volum e fraction]on 05-14-2022 Hematocrit (Bld) [Volume fraction] 44.9 % 37-47 [facility] Work Phone: Laboratory - Chemistry and C hemistry - challengeon 05-14-2022 ALP [Catalytic activity/Vol] 50 U/L 45-117 [facility] Work Phone: ALT [Catalytic activity/Vol] 19 U/L 13-56 [facility] Work Phone: CO2 [Moles/Vol] 22.0 mmol/L 21.0-32.0 [facility] Work Phone: Globulin (S) [Mass/Vol] 3.4 g/dL 2.2-4.2 [facility] Work Phone: Urea nitrogen/Creatinine [Mass ratio] 22.1 mg/mg 10-20 [facility] Work Phone: Laboratory - Hematology and Cell countson 05-14-2022 Erythrocyte distribution width (RBC) [Entitic vol] 44.8 fL 35.1-43.9 [facility] Work Phone: Erythrocyte distribution width (RBC) [Ratio] 13.2 % 11.6-14.6 [facility] Work Phone: Immature granulocytes/100 WBC (Bld) 0.100 % 0.0-0.9 [facility] Work Phone: Comment on above: IG% - Immature Granu locytes (promyelocytes, myelocytes and metamyelocytes) > 1% indicates that a LEFT SHIFT is Present. MCH (RBC) [Entitic mass] 31.1 pg 27.0-32.0 [facility] Work Phone: Nucleated RBC/100 WBC (Bld) [Ratio] 0 % 0-5 [facility] Work Phone: MCHC Auto (RBC) [Mass/Vol]on 05-14-2022 MCHC (RBC) [Mass/Vol] 33.6 g/dL 32-36 [facility] Work Phone: No Panel Informationon 05-14 Estimated GFR (MDRD) Amer 126 mL/min >60 [facility] Work Phone: Comment on above: GFR Calc Estimated GFR (MDRD) Non-Af Amer 104 mL/min >60 [facility] Work Phone: Comment on above: Non- GFR Calc Platelets bldon 05-14-2022 Platelets (Bld) [#/Vol] 314 10*3/uL 150-450 [facility] Work Phone: Serum or plasma albumin edna urement (mass/volume)on 05-14-2022 Albumin [Mass/Vol] 3.9 g/dL 3.2-5.[address] [facility] Work Phone: Serum or plasma albumin/glob ulin mass ratioon 05-14-2022 Albumin/Globulin [Mass ratio] 1.1 {ratio} 0.9-2.4 [facility] Work Phone: Serum or plasma calcium edna urement (mass/volume)on 05-14-2022 Calcium [Mass/Vol] 8.8 mg/dL 8.5-10.[address] [facility] Work Phone: Serum or plasma cholesterol in HDL measurement (mass/volume)on 05-14-2022 Cholesterol in HDL [Mass/Vol] 71 mg/dL >40 [facility] Work Phone: Comment on above: The drugs N-Acetylcy steine and Metamizole may falsely depress this assay. Reference Range HDL <40 mg/dL Low HDL Cholesterol HDL >or= 60 mg/dL High HDL Cholesterol Serum or plasma cholesterol in VLDL measurement (mass/volume)on 05-14-2022 Cholesterol in VLDL [Mass/Vol] 25 mg/dL 5-40 [facility] Work Phone: Serum or plasma creatinine m easurement (mass/volume)on 05-14-2022 Creatinine [Mass/Vol] 0.68 mg/dL 0.55-1.02 [facility] Work Phone: Comment on above: The validity of the calculated GFR & GFRAA in patients over 70 years has not been determined. Clinical correlation is essential. Serum or plasma low density lipoprotein (LDL) cholesterol measurement (mass/volume)on 05-14-2022 Cholesterol in LDL [Mass/Vol] 96 mg/dL 0-130 [facility] Work Phone: Serum or plasma urea nitroge n measurement (mass/volume)on 05-14-2022 Urea nitrogen [Mass/Vol] 15 mg/dL 7-18 [facility] Work Phone: Thin prep Papanicolaou smear with manual screeningon 05-14-2022 Thin prep Papanicolaou smear with manual screening 11 U/L 15-37 [facility] Work Phone: Thin prep Papanicolaou smear with manual screening 9 5-15 [facility] Work Phone: CALCIFEDIOL ([id number])Ordered B y: Actuary Manager on 05-03-2021 25-hydroxyvitamin D [Mass/Vol] 49.5 ng/mL Normal 30.0-100.0 [facility]; [facility] Work Phone: Comment on above: Vitamin D deficiency has been defined by the [place] ofMedicine and an Endocrine Society practice guideline as alevel of serum 25-OH vitamin D less than 20 ng/mL (1,2).The Endocrine Society went on to further define vitamin Dinsufficiency as a level between 21 and 29 ng/mL (2).1. IOM ([place] of Medicine). 2010. Dietary reference intakes for calcium and D. [place]: The National Academies Press.2. Maru MF, Iman LA, Nayana JOYCE, et al. Evaluation, treatment, and prevention of vitamin D deficiency: an Endocrine Society clinical practice guideline. JCEM. 2010; 96(7):1911-30. PATIENT WAS FASTINGP ERFORMED BY: [employer]6370 SUB ONE TECHNOLOGYAshe Memorial Hospital [id number] BY: [employer] [address] [id number] CBC & PLATELETS (AUTO) ([id number] [id number])Ordered By: Actuary Manager on 05-03-2021 Erythrocyte distribution width (RBC) [Ratio] 12.2 % Normal 11.7-15.4 [facility]; [facility] Work Phone: Comment on above: PATIENT WAS FASTINGP ERFORMED BY: [employer] Wfvxsm4495 SUB ONE TECHNOLOGYAshe Memorial Hospital [id number] BY: [facility] [id number] Hematocrit (Bld) [Volume fraction] 43.4 % Normal 34.0-46.6 [facility]; [facility] Work Phone: Comment on above: PATIENT WAS FASTINGP ERFORMED BY: [employer]70 SUB ONE TECHNOLOGYAshe Memorial Hospital [id number] BY: [facility] [id number] Hemoglobin (Bld) [Mass/Vol] 14.5 g/dL Normal 11.1-15.9 [facility]; [facility] Work Phone: Comment on above: PATIENT WAS FASTINGP ERFORMED BY: MADI [facility] Mhmnte4301 [facility] [id number] BY: [facility] [id number] MCH (RBC) [Entitic mass] 31.0 pg Normal 26.6-33.0 [facility]; [facility] Work Phone: Comment on above: PATIENT WAS FASTINGP ERFORMED BY: [facility] Kbcamj3437 [facility] [id number] BY: [facility] [id number] MCHC (RBC) [Mass/Vol] 33.4 g/dL Normal 31.5-35.7 [facility] prehensive Internal Medicine; [facility] Work Phone: Comment on above: PATIENT WAS FASTINGP ERFORMED BY: MADI [facility] Wuzyvr0759 [facility] [id number] BY: [facility] [id number] MCV (RBC) [Entitic vol] 93 fL Normal 79-97 [facility]; [facility] Work Phone: Comment on above: PATIENT WAS FASTINGP ERFORMED BY: [facility] Eeuhfa7846 [facility] [id number] BY: [facility] [id number] Platelets (Bld) [#/Vol] 352 10*3/uL Normal 150-450 [facility]; [facility] Work Phone: Comment on above: PATIENT WAS FASTINGP ERFORMED BY: [facility] Npyirp5021 [facility] [id number] BY: [facility] [id number] RBC (Bld) [#/Vol] 4.68 10*6/uL Normal 3.77-5.28 [facility]; [facility] Work Phone: Comment on above: PATIENT WAS FASTINGP ERFORMED BY: MADI [facility] Nyrkwm3765 [facility] [id number] BY: [facility] [address] [id number] WBC (Bld) [#/Vol] 4.8 10*3/uL Normal 3.4-10.8 [facility]; [facility] Work Phone: Comment on above: PATIENT WAS FASTINGP ERFORMED BY: MADI [facility] Oovmeg7153 [facility] [id number] BY: [facility] [id number] GLUCOSE ([id number])Ordered By: S ystem Corporate Legal Intern on 05-03-2021 Glucose [Mass/Vol] 89 mg/dL Normal 65-99 [facility]; [facility] Work Phone: Comment on above: PATIENT WAS FASTINGP ERFORMED BY: MADI [facility] Bijvze2205 [facility] [id number] BY: [facility] [id number] LIPID PANEL (14163)Ordered B y: Actuary Manager on 05-03-2021 Cholesterol [Mass/Vol] 197 mg/dL Normal 100-199 [facility]; [facility] Work Phone: Comment on above: PATIENT WAS FASTINGP ERFORMED BY: MADI [facility] Sngamr1682 [facility] [id number] BY: [address] [id number] Cholesterol in HDL [Mass/Vol] 57 mg/dL Normal [facility]; [facility] Work Phone: Comment on above: PATIENT WAS FASTINGP ERFORMED BY: CB [facility] Kueuze1507 [facility]in [place] [id number] BY: [facility] [address] [id number] Triglyceride [Mass/Vol] 105 mg/dL Normal 0-149 [facility]; [facility] Work Phone: Comment on above: PATIENT WAS FASTINGP ERFORMED BY: CB [facility] Aqrwjo7301 [facility]an [facility] [id number] BY: [facility] [address] [id number] LIPID PANEL (49114) 19 mg/dL Normal 5-40 Compr ens[facility]; [facility] Work Phone: Comment on above: PATIENT WAS FASTINGP ERFORMED BY: CB [facility] Oadmil3953 [facility] [id number] BY: [facility] [id number] LIPID PANEL (21152) 121 mg/dL Abnormal 0-99 [facility]; [facility] Work Phone: Comment on above: PATIENT WAS FASTINGP ERFORMED BY: CB [facility] Zkeigw3754 [facility] [id number] BY: [facility] [id number] LIPID PANEL (48567) 2.1 {ratio} Normal 0.0-3.2 [facility]; [facility] Work Phone: Comment on above: LDL/HDL Ratio Men Wo men 1/2 Avg.Risk 1.0 1.5 Avg.Risk 3.6 3.2 2X Avg.Risk 6.2 5.0 3X Avg.Risk 8.0 6.1 PATIENT WAS FASTINGP ERFORMED BY: CB [facility] Scvxbx5839 [facility] [id number] BY: [facility] [id number] NICOTINE (22326)Ordered By: Actuary Manager on 05-03-2021 Cotinine [Mass/Vol] <1.0 Normal Compr [facility]; [facility] Work Phone: Comment on above: This test was develo ped and its performance characteristicsdetermined by [employer]. It has not been cleared or approvedby the Food and Drug Administration.Cotinine levels greater than 20.0 are consistent with the use oftobacco or tobacco cessation products. PATIENT WAS FASTINGP ERFORMED BY: [employer]70 [facility] [id number] BY: [employer] [id number] Nicotine [Mass/Vol] <1.0 Normal Compr [facility]; [facility] Work Phone: Comment on above: This test was develo ped and its performance characteristicsdetermined by [employer]. It has not been cleared or approvedby the Food and Drug Administration.Nicotine levels greater than 2.0 are consistent with the use oftobacco or tobacco cessation products. PATIENT WAS FASTINGP ERFORMED BY: Pittarello70 [facility] [id number] BY: Intarcia TherapeuticsMichael [place] 469407 [facility] [id number] TSH (THYROID STIMULATING HOR BRANDO) ([id number])Ordered By: Actuary Manager on 05-03-2021 TSH Qn 1.920 {uIU/mL} Normal 0.450-4.50 0 [facility]; [facility] Work Phone: Comment on above: PATIENT WAS FASTINGP ERFORMED BY: [employer]6370 [facility] [id number] BY: [employer] [id number] VITAMIN B12 AND FOLATES (826 07)Ordered By: Actuary Manager on 05-03-2021 Cobalamin (Vitamin B12) [Mass/Vol] 473 pg/mL Normal 232-1245 [facility]; [facility] Work Phone: Comment on above: PATIENT WAS FASTINGP ERFORMED BY: [employer]6370 [facility] [id number] BY: [employer] [id number] Folate [Mass/Vol] ng/mL Normal Compreh ensive [facility]; [facility] Work Phone: Comment on above: A serum folate dhruv ntration of less than 3.1 ng/mL isconsidered to represent clinical deficiency. PATIENT WAS FASTINGP ERFORMED BY: [employer]6370 [facility] [id number] BY: [facility] Departmentton1447 [facility] [id number] Vital Signs Date Time Vital Sign Value Performing Clinician Facility 12-31-2022 10:27-0400 Body height 175.[address] Carmela Turpin Work Phone: [facility] 12-31-2022 10:27-0400 Body mass index (BMI) [Ratio] 20.8 kg/m2 Dr. Carmela Turpin Work Phone: [facility] 12-31-2022 10:27-0400 Body temperature 99.6 [degF] Dr. Carmela Turpin Work Phone: [facility] 12-31-2022 10:27-0400 Body weight 63.[address] Carmela Turpin Work Phone: [facility] 12-31-2022 10:27-0400 Diastolic blood pressure 78 mm[Hg] Dr. Carmela Turpin Work Phone: [facility] 12-31-2022 10:27-0400 Heart rate 52 /min Dr. Carmela Turpin Work Phone: [facility] 12-31-2022 10:27-0400 Respiratory rate 18 /min Dr. Carmela Turpin Work Phone: [facility] 12-31-2022 10:27-0400 SaO2% (BldA) [Mass fraction] 98 % Dr. Carmela Turpin Work Phone: [facility] 12-31-2022 10:27-0400 Systolic blood pressure 114 mm[Hg] Dr. Carmela Turpin Work Phone: [facility] 12-10-2022 11:01-0400 Body mass index (BMI) [Ratio] 21.1 kg/m2 Dr. Carmela Turpin Work Phone: [facility] 12-10-2022 11:01-0400 Body weight 64.[address] Carmela Turpin Work Phone: [facility] 12-10-2022 11:01-0400 Diastolic blood pressure 78 mm[Hg] Dr. Carmela Turpin Work Phone: [facility] 12-10-2022 11:01-0400 Systolic blood pressure 115 mm[Hg] Dr. Carmela Turpin Work Phone: [facility] 07-02-2022 09:51-0500 Body temperature 96.3 [degF] Dr. Alphonso Alvarez Work Phone: [facility] Work Phone: 07-02-2022 09:51-0500 Body weight 62.[address] Alphonso Alvarez Work Phone: [facility] Work Phone: 07-02-2022 09:51-0500 Diastolic blood pressure 62 mm[Hg] Dr. Alphonso Alvarez Work Phone: [facility] Work Phone: 07-02-2022 09:51-0500 Heart rate 73 /min Dr. Alphonso Alvarez Work Phone: [facility] Work Phone: 07-02-2022 09:51-0500 Respiratory rate 16 /min Dr. Alphonso Alvarez Work Phone: [facility] Work Phone: 07-02-2022 09:51-0500 SaO2% (BldA) [Mass fraction] 98 % Dr. Alphonso Alvarez Work Phone: [facility] Work Phone: 07-02-2022 09:51-0500 Systolic blood pressure 86 mm[Hg] Dr. Alphonso Alvarez Work Phone: [facility] Work Phone: 05-14-2022 10:39-0500 Body height 175.[address] Alphonso Alvarez Work Phone: [facility] Work Phone: 05-14-2022 10:39-0500 Body mass index (BMI) [Ratio] 20.9 kg/m2 Dr. Alphonso Alvarez Work Phone: [facility] Work Phone: 05-14-2022 10:39-0500 Body temperature 97.1 [degF] Dr. Alphonso Alvarez Work Phone: [facility] Work Phone: 05-14-2022 10:39-0500 Body weight 64.[address] Alphonso Alvarez Work Phone: [facility] Work Phone: 05-14-2022 10:39-0500 Diastolic blood pressure 74 mm[Hg] Dr. Alphonso Alvarez Work Phone: [facility] Work Phone: 05-14-2022 10:39-0500 Heart rate 55 /min Dr. Alphonso Alvarez Work Phone: [facility] Work Phone: 05-14-2022 10:39-0500 Respiratory rate 16 /min Dr. Alphonso Alvarez Work Phone: [facility] Work Phone: 05-14-2022 10:39-0500 SaO2% (BldA) [Mass fraction] 99 % Dr. Alphonso Alvarez Work Phone: [facility] Work Phone: 05-14-2022 10:39-0500 Systolic blood pressure 102 mm[Hg] Dr. Alphonso Alvarez Work Phone: [facility] Work Phone: 05-17-2021 07:40-0500 Body height 175.9 [...] without abnormal findings Carmela Turpin [facility] Start: 04-13-2025 End: 04-13-2025 ambulatory Carmela Turpin Facility:[facility] Start: 03-29-2025 ambulatory SELF SELF Facility:[facility] Start: 02-22-2025 End: 02-22-2025 ambulatory Carmela Turpin Facility:[facility] Start: 12-13-2024 End: 12-13-2024 ambulatory [facility] Facility:[facility] Start: 11-25-2024 End: 11-25-2024 ambulatory Enedina Patricia Facility:[facility] Start: 10-25-2024 End: 10-25-2024 ambulatory Enedina Patricia Facility:[facility] Start: 09-28-2024 End: 09-28-2024 ambulatory Carmela Turpin Facility:[facility] Start: 08-17-2024 End: 08-17-2024 ambulatory Enedina Patricia Facility:[facility] Start: 06-30-2024 End: 06-30-2024 ambulatory Enedina Patricia Facility:[facility] Start: 05-11-2024 End: 05-11-2024 ambulatory Enedina Patricia Facility:[facility] Start: 12-31-2022 End: 12-31-[address] Carmela Turpin Work Phone: [facility] Work Phone: Start: 12-31-2022 End: 12-31-[address] Carmela Turpin Work Phone: [facility] Work Phone: Start: 12-10-2022 End: 12-10-[address] [facility] Work [facility] Start: 12-10-2022 End: 12-10-[address] Carmela Turpin Work Phone: [facility] Work Phone: Start: 07-02-2022 End: 07-02-[address] Alphonso Alvarez Work Phone: [facility] Work Phone: Start: 07-02-2022 End: 07-02-[address] Alphonso Alvarez Work Phone: [facility] Start: 07-02-2022 End: 07-02-[address] Alphonso Alvarez Work Phone: [facility] Start: 05-14-2022 End: 05-14-[address] Alphonso Alvarez Work Phone: [facility] Work Phone: Start: 05-14-2022 End: 05-14-[address] Alphonso Alvarez Work Phone: [facility] Start: 05-14-2022 End: 05-14-[address] Alphonso Alvarez Work Phone: [facility] Start: 05-17-2021 End: 05-17-2021 Office outpatient visit 15 minutes Sofia Marcel DELIVERY ASSOCIATE Work Phone: [facility] Start: 05-03-2021 End: 05-03-2021 Office outpatient new 45 minutes Sofia Marcel DELIVERY ASSOCIATE Work Phone: [facility] Start: 05-03-2021 [...] Author Start: 05-14-2022 Patient referral [facility] Work Phone: Start: 05-17-2021 Procedure Education Eprescribed [...] 05-03-2021 Hemoglobin glycosylated a1c HgA1C , Office ([id number]) [facility]; [facility] Work Phone: Patient referral [facility] Work Phone: Immunizations Immunization Date Immunization Notes [facility] Provider [facility] 04-01-2022 Covid Pfizer Bival[place] t Booster Dr. Alphonso Alvarez Work Phone: [facility] 02-11-2022 influenza, seasonal, injectable Dr. Alphonso Alvarez Work Phone: [facility] 05-24-2021 Covid (Pfizer) Dr. Alphonso miller Work Phone: [facility] 03-22-2021 influenza, seasonal, injectable Sofia Marcel DELIVERY ASSOCIATE Work Phone: [facility]; [facility] Work Phone: 04-09-2017 tetanus toxoid, reduced diphtheria toxoid, and acellular pertussis vaccine, adsorbed Sofia Rod DELIVERY ASSOCIATE Work Phone: [facility]; [facility] Medicine Work Phone: 04-29-[address] Harris Alvarez Work Phone: [facility] 08-03-2012 tetanus toxoid, reduced diphtheria toxoid, and acellular pertussis vaccine, adsorbed Dr. Alphonso Alvarez Work Phone: [facility] Payers Date Payer Category Payer Self-pay 2024 Unknown [id number] Unknown [id number] Unknown [facility] Unknown [employer] [id number] Unknown [id number] Unknown [id number] Unknown [id number] Unknown [id number] Unknown [id number] Unknown [id number] Unknown [id number] Unknown [id number] Unknown [id number] Social History Date Type Detail Facility Caffeine Use Caffeine Use [facility] Work Phone: Comment on above: 2c/day Start: 05-14-2022 End: 12-29-2022 Tobacco smoking status NHIS Unknown if ever smoked [facility] Start: 1985 Sex Assigned At Female [facility] Clinical Note 12-10-2022 Note Date & Type Note Facility 12-10-2022 Note [facility] Pap Smear Specimen Adequacy December 10, 2022 [...] Anxiety and depression nonea ctive [facility] Work Phone: Evaluation note Note Date & [...] nonea ctive Hair loss noneactive [facility] Work Phone: Evaluation note Note Date & Type Note Facility Evaluation note Diagnosis Onset Date Encounter for routine gyneco logical examination noneactive Exercise-induced asthma acut e Rosacea acute Oral contraceptive pill surveillance noneactive Annual physical exam noneact augusto Misophonia noneactive Anxiety and depression nonea ctive Vitamin D deficiency noneact augusto [facility] Work Phone: Instructions Note Date & Type [...] Complaint and Reason for Visit 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 NPP E ORDER 6 wk FU Reason for Visit Rosacea Oral contraceptive pill surveillance Immunization due Screening for cardiovascular condition Establishing care with new doctor, encounter for Screening for cervical cancer Anxiety and depression Exercise-induced asthma Rosacea Oral contraceptive pill surveillance Misophonia Anxiety and depression Hair loss Chief Complaint Annual (INSIDE TESTER) 6 M FU Reason for Visit Encounter [...] section and content) DATE CREATED AUTHOR 04/09/2025 [facility] DATE CREATED AUTHOR AUTHOR'S ORGANIZ ATION 04/15/2025 [facility] FOR RECORDS PERTAINING TO PATIENTS WHO [...] BE BASED ON THE PRIMARY CLINICAL RECORDS. [employer] provides no warranty or guarantee of the accuracy or completeness of information in this document.
[2025-04-19 09:58] LABS: Hematocrit 44.6 % (37-47); Hemoglobin 15.0 g/dL (12.0-15.0); Immature Granulocytes Count 0.010 X10^3/uL (0.0-0.0); Mean Corp Hgb Conc 33.6 g/dL (32-36); Mean Corpuscular Volume 89.9 fL (81-99); Mean Platelet Vol. 8.9 fl (6.2-12.0); NRBC Flagged by Analyzer 0 % (0-5); Platelet Count 370 K/mm3 (150-450); RBC Distribution Width CV 13.0 % (11.6-14.6); RBC Distribution Width SD 42.7 fl (35.1-43.9); Red Blood Count 4.96 M/mm3 (4.2-5.4); White Blood Count 5.6 K/mm3 (4.4-11.0)
[2025-04-19 10:47] LABS: AST(SGOT) 14 U/L (<=31); Alanine Aminotransfer ALT/SGPT 10 U/L (<=34); Albumin, Serum 4.5 g/dL (3.5-5.0); Alkaline Phosphatase 36 U/L (35-104); Anion Gap 11 (5-15); BUN 12 mg/dL (4-19); BUN/Creat Ratio 16.7 RATIO (10-20); Calcium,Total 9.4 mg/dL (7.6-11.0); Carbon Dioxide 23.4 mmol/L (21.0-32.0); Chloride 105 mmol/L (98-108); Cholesterol 198 mg/dL (<=200); Globulin 2.5 g/dL (2.2-4.2); Glucose 89 mg/dL (70-99); Low Density Lipoprotein Calc. 101 mg/dL; Potassium 4.3 mmol/L (3.3-5.1); Triglycerides 102 mg/dL; Very Low Density Lipoprotein 20 mg/dL (5-40); cholesterol:hdl ratio screen 2.51
[2025-04-19 11:00] LABS: T3 Total - Triiodothyronine 1.93 ng/mL (0.80-2.00); Vitamin D,25 Hydroxy 62.6 ng/mL (30-100)
[2025-04-19 11:17] LABS: Vitamin B12 > 4000 pg/mL (180-914)
== END | disposition home or self-care (01) ==
LOC: LAB 09:10
PROVIDERS: PCP Internal Medicine; Referring Provider Internal Medicine; Visit Provider Internal Medicine
DX: Z00.00 Encounter for general adult medical examination without abnormal findings (principal); F90.9 Attention-deficit hyperactivity disorder, unspecified type; F41.9 Anxiety disorder, unspecified; F32.A Depression, unspecified; E55.9 Vitamin D deficiency, unspecified; E78.2 Mixed hyperlipidemia; Z86.39 Personal history of other endocrine, nutritional and metabolic disease
CPT/HCPCS: 36415; 80053; 80061; 82306; 82607; 84439; 84443; 84480; 85025

== ENCOUNTER → 2025-04-25 | Outpatient (CLI) | payer MEDICAID, SELFPAY ==
--- NOTE | 2025-04-25 13:03 | US_ITS ---
PROCEDURE: THYROID 04/25/2025 REASON FOR EXAM: HISTORY OF THYROID NODULE, FH THYROID CANCER TECHNIQUE: Procedure Code: USTHY Modality: US Procedure: THYROID COMPARISON: None FINDINGS: Right thyroid lobe size: 4.9 cm 1.5 cm 1.5 cm Left thyroid lobe size: 4.9 cm 1.5 cm 1.3 cm Isthmus: 0.2 cm Background parenchymal echotexture is homogeneous. Nodules: No thyroid nodule is seen. US/Thyroid IMPRESSION: Unremarkable thyroid sonogram. RECOMMENDATION: Based on most suspicious nodule. Nodule size = largest diameter Only evaluate nodule if =>5 mm. Growth > 20% in 2 dimensions = worsening. Follow up to 4 nodules. Recommend biopsy for no more than 2 nodules. Reading Location: [id number]
== END | disposition home or self-care (01) ==
LOC: US 12:59
PROVIDERS: PCP Internal Medicine; Referring Provider Internal Medicine; Visit Provider Internal Medicine
DX: Z86.39 Personal history of other endocrine, nutritional and metabolic disease (principal)
CPT/HCPCS: 76536